=== PATIENT | female | born 1970 | race Caucasian/White ===

== ENCOUNTER 2021-05-01 16:24 | Inpatient (IN) | payer OTHER ==
[2021-05-01 18:07] VITALS: BMI 25.4
[2021-05-01] MEDS ORDERED: MAGNESIUM HYDROX 2400MG/30ML ORAL SUSPENSION 30 ML CUP PO PRN (18:30)
[2021-05-01] MEDS ORDERED: ONDANSETRON *ODT* 4 MG TABLET SL PRN (18:30)
[2021-05-01] MEDS ORDERED: MAG HYDROX/AL HYDROX/SIMETH 30 ML UNIT-DOSE CUP PO PRN (18:30)
[2021-05-01] MEDS ORDERED: BISMUTH SUBSALICYLATE 524 MG/30 ML PO PRN (18:30)
[2021-05-01] MEDS ORDERED: ACETAMINOPHEN 325 MG TABLET (FP) PO PRN ×2 (18:30)
[2021-05-01] MEDS ORDERED: IBUPROFEN 400 MG TABLET (FP) PO PRN (18:30)
[2021-05-01] MEDS ORDERED: MAGNESIUM CITRATE 300 ML BOTTLE PO PRN (18:30)
[2021-05-01] MEDS ORDERED: MENTHOL/PHENOL 1 EACH UD MM PRN (18:30)
[2021-05-01] MEDS ORDERED: chlordiazePOXIDE HCL 25 MG CAPSULE PO ONE ×2 (18:32)
[2021-05-01] MEDS ORDERED: chlordiazePOXIDE HCL 25 MG CAPSULE PO PRN (18:32)
[2021-05-01] MEDS ORDERED: chlordiazePOXIDE HCL 25 MG CAPSULE ONE (18:52)
[2021-05-01] MEDS ORDERED: traZODone HCL 50 MG TABLET (FP) PO ONE (22:00)
[2021-05-01] MEDS ORDERED: MELATONIN 5 MG TABLETS PO SCH (22:00)
[2021-05-01] MEDS: chlordiazePOXIDE HCL 25 MG CAPSULE PO SCH (22:32)
[2021-05-01] MEDS: THIAMINE HCL 100 MG TABLET (FP) PO SCH (22:51)
[2021-05-02] MEDS: chlordiazePOXIDE HCL 25 MG CAPSULE PO SCH ×2 (05:59→10:34)
[2021-05-02 10:06] LABS: CALCIUM 9.2 mg/dL (8.5-10.1)
[2021-05-02 10:07] LABS: ALBUMIN 3.8 g/dl (3.4-5.0); BLOOD UREA NITROGEN 19.6 mg/dL (7-18)
[2021-05-02 10:11] LABS: BILIRUBIN,TOTAL 0.6 mg/dL (0.2-1); TOT PROT 6.8 g/dl (6.4-8.2)
[2021-05-02 10:13] LABS: HEMATOCRIT 31.8 % (32.4-45.2); HEMOGLOBIN 10.1 GM/dL (10.7-15.3); MCH 29.2 pg (25.7-33.7); MCHC 31.7 g/dl (32.0-36.0); MEAN CELL VOLUME 92.1 fl (80-96); MEAN PLT VOLUME 8.6 fl (7.5-11.1); PLATELET COUNT 102 10^3/uL (134-434); RBC 3.45 M/mm3 (3.60-5.2); RDW 20.5 % (11.6-15.6); WHITE BLOOD COUNT 2.4 K/mm3 (4.0-10.0)
[2021-05-02] MEDS: METHOCARBAMOL 500 MG TABLET PO PRN (10:33)
[2021-05-02] MEDS: hydrOXYzine PAMOATE 25 MG CAPSULE (FP) PO PRN ×2 (10:33→17:45)
[2021-05-02] MEDS: PRENATAL VITAMINS W/ FOLIC ACID TABLET (FP) PO SCH (10:33)
[2021-05-02] MEDS ORDERED: POTASSIUM CHLORIDE ORAL LIQUID 20 MEQ/15 ML PO ONE (15:30)
[2021-05-02] MEDS ORDERED: LORazepam 1 MG TABLET PO PRN (16:24)
[2021-05-02] MEDS: LORazepam 0.5 MG TABLET PO SCH ×2 (17:45→22:24)
[2021-05-02] MEDS: THIAMINE HCL 100 MG TABLET (FP) PO SCH (22:23)
[2021-05-02] MEDS: traZODone HCL 50 MG TABLET (FP) PO SCH (22:23)
[2021-05-03] MEDS ORDERED: chlordiazePOXIDE HCL 25 MG CAPSULE PO SCH (05:00)
[2021-05-03] MEDS: LORazepam 0.5 MG TABLET PO SCH ×3 (05:39→18:12)
[2021-05-03] MEDS: hydrOXYzine PAMOATE 25 MG CAPSULE (FP) PO PRN ×4 (05:43→22:26)
[2021-05-03] MEDS: PRENATAL VITAMINS W/ FOLIC ACID TABLET (FP) PO SCH (10:16)
[2021-05-03] MEDS: METHOCARBAMOL 500 MG TABLET PO PRN (10:16)
[2021-05-03 10:26] LABS: BASO % 1.7 % (0-2.0); HEMATOCRIT 32.2 % (32.4-45.2); HEMOGLOBIN 10.7 GM/dL (10.7-15.3); LYMPH % 26.9 % (8-40); MCH 30.3 pg (25.7-33.7); MCHC 33.3 g/dl (32.0-36.0); MEAN PLT VOLUME 8.5 fl (7.5-11.1); MONO % 19.6 % (3.8-10.2); NEUT % 48.8 % (42.8-82.8); PLATELET COUNT 100 10^3/uL (134-434); RBC 3.54 M/mm3 (3.60-5.2); RDW 20.3 % (11.6-15.6); WHITE BLOOD COUNT 2.3 K/mm3 (4.0-10.0)
[2021-05-03] MEDS: SERTRALINE HCL 50 MG TABLET (FP) PO SCH (13:33)
[2021-05-03 17:31] LABS: EPI CELLS >36 /uL (0-25.1); HYALINE CASTS 7 /uL (0-3.1); PH,URINE 7.5 (5.0-8.0); URINE APPEARANCE CLOUDY; URINE BACTERIA 4257 /uL (0-1359); URINE BILIRUBIN NEGATIVE (NEGATIVE); URINE COLOR YELLOW; URINE GLUCOSE (UA) NEGATIVE (NEGATIVE); URINE KETONE NEGATIVE (NEGATIVE); URINE LEUK ESTERASE 3+ (NEGATIVE); URINE NITRITE NEGATIVE (NEGATIVE); URINE PROTEIN 1+ (NEGATIVE); URINE RBC 34 /uL (0-23.9); URINE WBC 711 /uL (0-25.8)
[2021-05-03] MEDS: traZODone HCL 50 MG TABLET (FP) PO SCH (22:21)
[2021-05-03] MEDS: THIAMINE HCL 100 MG TABLET (FP) PO SCH (22:26)
[2021-05-04] MEDS ORDERED: chlordiazePOXIDE HCL 10 MG CAPSULE PO PRN
[2021-05-04] MEDS: LORazepam 0.5 MG TABLET PO SCH ×4 (01:00→22:08)
[2021-05-04] MEDS ORDERED: chlordiazePOXIDE HCL 10 MG CAPSULE PO SCH (05:00)
[2021-05-04] MEDS: hydrOXYzine PAMOATE 25 MG CAPSULE (FP) PO PRN ×2 (10:27→17:47)
[2021-05-04] MEDS: SERTRALINE HCL 50 MG TABLET (FP) PO SCH (10:27)
[2021-05-04] MEDS: PRENATAL VITAMINS W/ FOLIC ACID TABLET (FP) PO SCH (10:27)
[2021-05-04] MEDS: METHOCARBAMOL 500 MG TABLET PO PRN (10:27)
[2021-05-04] MEDS: SULFAMETHOXAZOLE/TRIMETHOPRIM 800MG/160MG D.S. TABLET PO SCH ×2 (11:16→22:08)
[2021-05-04] MEDS ORDERED: COLLOIDAL OATMEAL 1 BAR EACH TP PRN (13:23)
[2021-05-04] MEDS: THIAMINE HCL 100 MG TABLET (FP) PO SCH (22:08)
[2021-05-04] MEDS: traZODone HCL 50 MG TABLET (FP) PO SCH (22:08)
[2021-05-05] MEDS ORDERED: chlordiazePOXIDE HCL 10 MG CAPSULE PO SCH (05:00)
[2021-05-05] MEDS: LORazepam 0.5 MG TABLET PO SCH ×2 (06:07→17:39)
[2021-05-05] MEDS: METHOCARBAMOL 500 MG TABLET PO PRN (10:30)
[2021-05-05] MEDS: PRENATAL VITAMINS W/ FOLIC ACID TABLET (FP) PO SCH (10:30)
[2021-05-05] MEDS: hydrOXYzine PAMOATE 25 MG CAPSULE (FP) PO PRN ×3 (10:30→22:21)
[2021-05-05] MEDS: SERTRALINE HCL 50 MG TABLET (FP) PO SCH (10:30)
[2021-05-05] MEDS: SULFAMETHOXAZOLE/TRIMETHOPRIM 800MG/160MG D.S. TABLET PO SCH ×2 (10:30→22:21)
[2021-05-05] MEDS: traZODone HCL 50 MG TABLET (FP) PO SCH (22:20)
[2021-05-05] MEDS: THIAMINE HCL 100 MG TABLET (FP) PO SCH (22:21)
[2021-05-06] MEDS ORDERED: chlordiazePOXIDE HCL 10 MG CAPSULE PO ONE (05:00)
[2021-05-06] MEDS ORDERED: LORazepam 0.5 MG TABLET PO ONE (05:00)
[2021-05-06 08:16] VITALS: TEMP 98
[2021-05-06 09:58] VITALS: BP 111/72; PULSE 81
[2021-05-06] MEDS: hydrOXYzine PAMOATE 25 MG CAPSULE (FP) PO PRN (10:02)
[2021-05-06] MEDS: METHOCARBAMOL 500 MG TABLET PO PRN (10:02)
[2021-05-06] MEDS: SULFAMETHOXAZOLE/TRIMETHOPRIM 800MG/160MG D.S. TABLET PO SCH (10:02)
[2021-05-06] MEDS: SERTRALINE HCL 50 MG TABLET (FP) PO SCH (10:02)
[2021-05-06] MEDS: PRENATAL VITAMINS W/ FOLIC ACID TABLET (FP) PO SCH (10:02)
== END 2021-05-06 10:10 | disposition home or self-care (01) | DRG 775 ==
LOC: YASAS 16:24 → Y6N 21:00
PROVIDERS: ADMIT Allergy & Immunology; ATTEND Allergy & Immunology
PROC: HZ2ZZZZ Detoxification Services for Substance Abuse Treatment (ICD-10-PCS; principal; 2021-05-01)
DX: F10.230 Alcohol dependence with withdrawal, uncomplicated (principal); F10.220 Alcohol dependence with intoxication, uncomplicated; F10.280 Alcohol dependence with alcohol-induced anxiety disorder; F10.282 Alcohol dependence with alcohol-induced sleep disorder; F10.24 Alcohol dependence with alcohol-induced mood disorder; F43.10 Post-traumatic stress disorder, unspecified; D70.9 Neutropenia, unspecified; N39.0 Urinary tract infection, site not specified; R74.01 Elevation of levels of liver transaminase levels; Z62.810 Personal history of physical and sexual abuse in childhood; Z91.410 Personal history of adult physical and sexual abuse; Z86.69 Personal history of other diseases of the nervous system and sense organs; Z56.0 Unemployment, unspecified
CPT/HCPCS: 36415; 80053; 81003; 81025; 82962; 85025; 85027; 86780; C9803-CS; U0003; U0005

== ENCOUNTER 2021-05-12 11:59 | Inpatient (IN) | payer OTHER ==
[2021-05-12] MEDS ORDERED: ACETAMINOPHEN 325 MG TABLET (FP) PO PRN (12:26)
[2021-05-12] MEDS ORDERED: P-EPHED 60MG/TRIPROLIDI 2.5MG TABLET PO PRN (12:26)
[2021-05-12] MEDS ORDERED: MAGNESIUM HYDROX 2400MG/30ML ORAL SUSPENSION 30 ML CUP PO PRN (12:26)
[2021-05-12] MEDS ORDERED: LOPERAMIDE HCL 2 MG CAPSULE PO PRN (12:26)
[2021-05-12] MEDS ORDERED: IBUPROFEN 400 MG TABLET (FP) PO PRN (12:26)
[2021-05-12] MEDS ORDERED: guaiFENesin 200 MG/10 ML 10 ML UNIT-DOSE CUPS PO PRN (12:26)
[2021-05-12] MEDS ORDERED: MAG HYDROX/AL HYDROX/SIMETH 30 ML UNIT-DOSE CUP PO PRN (12:26)
[2021-05-12] MEDS ORDERED: MAGNESIUM CITRATE 300 ML BOTTLE PO PRN (12:26)
[2021-05-12 13:01] VITALS: BMI 26.7
[2021-05-12] MEDS: PRENATAL VITAMINS W/ FOLIC ACID TABLET (FP) PO SCH (20:01)
[2021-05-12] MEDS: hydrOXYzine PAMOATE 25 MG CAPSULE (FP) PO SCH ×3 (20:02→21:12)
[2021-05-12] MEDS: NICOTINE 7 MG/24 HOURS TOPICAL PATCH TD SCH (20:02)
[2021-05-12] MEDS: THIAMINE HCL 100 MG TABLET (FP) PO SCH (21:11)
[2021-05-12] MEDS ORDERED: MELATONIN 5 MG TABLETS PO SCH (22:00)
[2021-05-13] MEDS: hydrOXYzine PAMOATE 25 MG CAPSULE (FP) PO SCH ×5 (06:14→21:16)
[2021-05-13] MEDS: PRENATAL VITAMINS W/ FOLIC ACID TABLET (FP) PO SCH (09:42)
[2021-05-13] MEDS: NICOTINE 7 MG/24 HOURS TOPICAL PATCH TD SCH (09:43)
[2021-05-13 10:35] LABS: EPI CELLS 28 /uL (0-25.1); HYALINE CASTS 0 /uL (0-3.1); PH,URINE 7.5 (5.0-8.0); URINE APPEARANCE CLEAR; URINE BACTERIA 406 /uL (0-1359); URINE BILIRUBIN NEGATIVE (NEGATIVE); URINE COLOR YELLOW; URINE GLUCOSE (UA) NEGATIVE (NEGATIVE); URINE KETONE NEGATIVE (NEGATIVE); URINE LEUK ESTERASE 1+ (NEGATIVE); URINE NITRITE NEGATIVE (NEGATIVE); URINE PROTEIN NEGATIVE (NEGATIVE); URINE RBC 4 /uL (0-23.9); URINE WBC 67 /uL (0-25.8)
[2021-05-13 10:37] LABS: CALCIUM 9.3 mg/dL (8.5-10.1)
[2021-05-13 10:38] LABS: ALBUMIN 3.8 g/dl (3.4-5.0); BLOOD UREA NITROGEN 9.6 mg/dL (7-18)
[2021-05-13 10:41] LABS: CREATININE 0.7 mg/dL (0.55-1.3)
[2021-05-13 10:44] LABS: BILIRUBIN,TOTAL 0.7 mg/dL (0.2-1); HEMATOCRIT 33.4 % (32.4-45.2); HEMOGLOBIN 10.9 GM/dL (10.7-15.3); MCH 29.6 pg (25.7-33.7); MCHC 32.5 g/dl (32.0-36.0); MEAN CELL VOLUME 91.1 fl (80-96); MEAN PLT VOLUME 8.2 fl (7.5-11.1); PLATELET COUNT 258 10^3/uL (134-434); RBC 3.67 M/mm3 (3.60-5.2); RDW 19.5 % (11.6-15.6); TOT PROT 6.8 g/dl (6.4-8.2); WHITE BLOOD COUNT 4.5 K/mm3 (4.0-10.0)
[2021-05-13 11:08] LABS: SYPHILIS W/ RPR CONF NON-REACTIVE (NONREACTIVE)
[2021-05-13] MEDS: SULFAMETHOXAZOLE/TRIMETHOPRIM 800MG/160MG D.S. TABLET PO SCH (12:55)
[2021-05-13] MEDS: SERTRALINE HCL 50 MG TABLET (FP) PO SCH (15:50)
[2021-05-13] MEDS: THIAMINE HCL 100 MG TABLET (FP) PO SCH (21:15)
[2021-05-13] MEDS: traZODone HCL 100 MG TABLET (FP) PO SCH (21:16)
[2021-05-14] MEDS: hydrOXYzine PAMOATE 25 MG CAPSULE (FP) PO SCH ×5 (05:48→21:22)
[2021-05-14] MEDS: PRENATAL VITAMINS W/ FOLIC ACID TABLET (FP) PO SCH (10:17)
[2021-05-14] MEDS: NICOTINE 7 MG/24 HOURS TOPICAL PATCH TD SCH (10:17)
[2021-05-14] MEDS: SERTRALINE HCL 50 MG TABLET (FP) PO SCH (10:17)
[2021-05-14] MEDS: SULFAMETHOXAZOLE/TRIMETHOPRIM 800MG/160MG D.S. TABLET PO SCH (10:17)
[2021-05-14] MEDS: THIAMINE HCL 100 MG TABLET (FP) PO SCH (21:22)
[2021-05-14] MEDS: traZODone HCL 100 MG TABLET (FP) PO SCH (21:22)
[2021-05-15] MEDS: hydrOXYzine PAMOATE 25 MG CAPSULE (FP) PO SCH ×5 (06:36→21:10)
[2021-05-15] MEDS: PRENATAL VITAMINS W/ FOLIC ACID TABLET (FP) PO SCH (10:17)
[2021-05-15] MEDS: NICOTINE 7 MG/24 HOURS TOPICAL PATCH TD SCH (10:17)
[2021-05-15] MEDS: SULFAMETHOXAZOLE/TRIMETHOPRIM 800MG/160MG D.S. TABLET PO SCH (10:17)
[2021-05-15] MEDS: SERTRALINE HCL 50 MG TABLET (FP) PO SCH (10:17)
[2021-05-15] MEDS: traZODone HCL 100 MG TABLET (FP) PO SCH (21:10)
[2021-05-15] MEDS: THIAMINE HCL 100 MG TABLET (FP) PO SCH (21:10)
[2021-05-16] MEDS: hydrOXYzine PAMOATE 25 MG CAPSULE (FP) PO SCH ×5 (06:17→21:05)
[2021-05-16] MEDS: PRENATAL VITAMINS W/ FOLIC ACID TABLET (FP) PO SCH (09:14)
[2021-05-16] MEDS: SERTRALINE HCL 50 MG TABLET (FP) PO SCH (09:14)
[2021-05-16] MEDS: NICOTINE 7 MG/24 HOURS TOPICAL PATCH TD SCH (09:14)
[2021-05-16] MEDS: SULFAMETHOXAZOLE/TRIMETHOPRIM 800MG/160MG D.S. TABLET PO SCH (09:14)
[2021-05-16] MEDS: traZODone HCL 100 MG TABLET (FP) PO SCH (21:05)
[2021-05-16] MEDS: THIAMINE HCL 100 MG TABLET (FP) PO SCH (21:05)
[2021-05-17] MEDS: hydrOXYzine PAMOATE 25 MG CAPSULE (FP) PO SCH ×5 (06:06→21:05)
[2021-05-17] MEDS: SULFAMETHOXAZOLE/TRIMETHOPRIM 800MG/160MG D.S. TABLET PO SCH (09:42)
[2021-05-17] MEDS: SERTRALINE HCL 50 MG TABLET (FP) PO SCH (09:42)
[2021-05-17] MEDS: PRENATAL VITAMINS W/ FOLIC ACID TABLET (FP) PO SCH (09:42)
[2021-05-17] MEDS: NICOTINE 7 MG/24 HOURS TOPICAL PATCH TD SCH (09:42)
[2021-05-17] MEDS: THIAMINE HCL 100 MG TABLET (FP) PO SCH (21:05)
[2021-05-17] MEDS: traZODone HCL 100 MG TABLET (FP) PO SCH (21:05)
[2021-05-18] MEDS: hydrOXYzine PAMOATE 25 MG CAPSULE (FP) PO SCH ×5 (05:53→21:14)
[2021-05-18] MEDS: NICOTINE 10 MG CARTRIDGE (INHALER) IH PRN (09:26)
[2021-05-18] MEDS: SERTRALINE HCL 50 MG TABLET (FP) PO SCH (09:26)
[2021-05-18] MEDS: NICOTINE 7 MG/24 HOURS TOPICAL PATCH TD SCH (09:26)
[2021-05-18] MEDS: PRENATAL VITAMINS W/ FOLIC ACID TABLET (FP) PO SCH (09:26)
[2021-05-18] MEDS: SULFAMETHOXAZOLE/TRIMETHOPRIM 800MG/160MG D.S. TABLET PO SCH (09:26)
[2021-05-18] MEDS: THIAMINE HCL 100 MG TABLET (FP) PO SCH (21:14)
[2021-05-18] MEDS: traZODone HCL 100 MG TABLET (FP) PO SCH (21:14)
[2021-05-19] MEDS: hydrOXYzine PAMOATE 25 MG CAPSULE (FP) PO SCH ×5 (06:14→21:11)
[2021-05-19] MEDS: NICOTINE 7 MG/24 HOURS TOPICAL PATCH TD SCH (09:07)
[2021-05-19] MEDS: SULFAMETHOXAZOLE/TRIMETHOPRIM 800MG/160MG D.S. TABLET PO SCH (09:07)
[2021-05-19] MEDS: PRENATAL VITAMINS W/ FOLIC ACID TABLET (FP) PO SCH (09:07)
[2021-05-19] MEDS: SERTRALINE HCL 50 MG TABLET (FP) PO SCH (09:07)
[2021-05-19] MEDS: THIAMINE HCL 100 MG TABLET (FP) PO SCH (21:11)
[2021-05-19] MEDS: traZODone HCL 100 MG TABLET (FP) PO SCH (21:11)
[2021-05-20] MEDS: hydrOXYzine PAMOATE 25 MG CAPSULE (FP) PO SCH ×5 (06:29→22:16)
[2021-05-20] MEDS: PRENATAL VITAMINS W/ FOLIC ACID TABLET (FP) PO SCH (11:02)
[2021-05-20] MEDS: SULFAMETHOXAZOLE/TRIMETHOPRIM 800MG/160MG D.S. TABLET PO SCH (11:03)
[2021-05-20] MEDS: NICOTINE 10 MG CARTRIDGE (INHALER) IH PRN (11:03)
[2021-05-20] MEDS: NICOTINE 7 MG/24 HOURS TOPICAL PATCH TD SCH (11:03)
[2021-05-20] MEDS: SERTRALINE HCL 50 MG TABLET (FP) PO SCH (11:03)
[2021-05-20] MEDS: THIAMINE HCL 100 MG TABLET (FP) PO SCH (22:16)
[2021-05-20] MEDS: traZODone HCL 100 MG TABLET (FP) PO SCH (22:16)
[2021-05-21] MEDS: hydrOXYzine PAMOATE 25 MG CAPSULE (FP) PO SCH ×3 (06:16→14:38)
[2021-05-21] MEDS: PRENATAL VITAMINS W/ FOLIC ACID TABLET (FP) PO SCH (10:56)
[2021-05-21] MEDS: SERTRALINE HCL 50 MG TABLET (FP) PO SCH (10:56)
[2021-05-21] MEDS: NICOTINE 10 MG CARTRIDGE (INHALER) IH PRN (10:56)
[2021-05-21] MEDS: NICOTINE 7 MG/24 HOURS TOPICAL PATCH TD SCH (10:56)
[2021-05-21] MEDS: SULFAMETHOXAZOLE/TRIMETHOPRIM 800MG/160MG D.S. TABLET PO SCH (10:56)
[2021-05-21] MEDS: hydrOXYzine PAMOATE 25 MG CAPSULE (FP) PO PRN ×2 (14:28→21:06)
[2021-05-21 20:27] LABS: EPI CELLS 18 /uL (0-25.1); HYALINE CASTS 0 /uL (0-3.1); URINE APPEARANCE CLEAR; URINE BACTERIA 218 /uL (0-1359); URINE BILIRUBIN NEGATIVE (NEGATIVE); URINE COLOR YELLOW; URINE GLUCOSE (UA) NEGATIVE (NEGATIVE); URINE KETONE NEGATIVE (NEGATIVE); URINE LEUK ESTERASE 1+ (NEGATIVE); URINE NITRITE NEGATIVE (NEGATIVE); URINE PROTEIN NEGATIVE (NEGATIVE); URINE RBC 0 /uL (0-23.9); URINE UROBILINOGEN 0.2 mg/dL (0.2-1.0); URINE WBC 17 /uL (0-25.8)
[2021-05-21] MEDS: traZODone HCL 100 MG TABLET (FP) PO SCH (21:05)
[2021-05-21] MEDS: THIAMINE HCL 100 MG TABLET (FP) PO SCH (21:06)
[2021-05-22] MEDS: hydrOXYzine PAMOATE 25 MG CAPSULE (FP) PO PRN ×4 (06:22→21:37)
[2021-05-22] MEDS: PRENATAL VITAMINS W/ FOLIC ACID TABLET (FP) PO SCH (11:17)
[2021-05-22] MEDS: SERTRALINE HCL 50 MG TABLET (FP) PO SCH (11:17)
[2021-05-22] MEDS: SULFAMETHOXAZOLE/TRIMETHOPRIM 800MG/160MG D.S. TABLET PO SCH (11:17)
[2021-05-22] MEDS: NICOTINE 10 MG CARTRIDGE (INHALER) IH PRN (11:18)
[2021-05-22] MEDS: NICOTINE 7 MG/24 HOURS TOPICAL PATCH TD SCH (11:18)
[2021-05-22] MEDS: THIAMINE HCL 100 MG TABLET (FP) PO SCH (21:36)
[2021-05-22] MEDS: traZODone HCL 100 MG TABLET (FP) PO SCH (21:36)
[2021-05-23] MEDS: hydrOXYzine PAMOATE 25 MG CAPSULE (FP) PO PRN ×4 (06:28→21:33)
[2021-05-23] MEDS: PRENATAL VITAMINS W/ FOLIC ACID TABLET (FP) PO SCH (10:31)
[2021-05-23] MEDS: SULFAMETHOXAZOLE/TRIMETHOPRIM 800MG/160MG D.S. TABLET PO SCH (10:31)
[2021-05-23] MEDS: NICOTINE 7 MG/24 HOURS TOPICAL PATCH TD SCH (10:31)
[2021-05-23] MEDS: SERTRALINE HCL 50 MG TABLET (FP) PO SCH (10:31)
[2021-05-23] MEDS: THIAMINE HCL 100 MG TABLET (FP) PO SCH (21:33)
[2021-05-23] MEDS: traZODone HCL 100 MG TABLET (FP) PO SCH (21:33)
[2021-05-24] MEDS: PRENATAL VITAMINS W/ FOLIC ACID TABLET (FP) PO SCH (10:45)
[2021-05-24] MEDS: SULFAMETHOXAZOLE/TRIMETHOPRIM 800MG/160MG D.S. TABLET PO SCH (10:45)
[2021-05-24] MEDS: SERTRALINE HCL 50 MG TABLET (FP) PO SCH (10:45)
[2021-05-24] MEDS: NICOTINE 7 MG/24 HOURS TOPICAL PATCH TD SCH (10:45)
[2021-05-24] MEDS: hydrOXYzine PAMOATE 25 MG CAPSULE (FP) PO PRN ×2 (18:08→21:13)
[2021-05-24] MEDS: THIAMINE HCL 100 MG TABLET (FP) PO SCH (21:13)
[2021-05-24] MEDS: traZODone HCL 100 MG TABLET (FP) PO SCH (21:13)
[2021-05-25] MEDS: hydrOXYzine PAMOATE 25 MG CAPSULE (FP) PO PRN ×2 (06:16→10:37)
[2021-05-25] MEDS: PRENATAL VITAMINS W/ FOLIC ACID TABLET (FP) PO SCH (10:36)
[2021-05-25] MEDS: NICOTINE 7 MG/24 HOURS TOPICAL PATCH TD SCH (10:36)
[2021-05-25] MEDS: SERTRALINE HCL 50 MG TABLET (FP) PO SCH (10:37)
[2021-05-25] MEDS: NICOTINE 10 MG CARTRIDGE (INHALER) IH PRN (10:37)
[2021-05-25] MEDS ORDERED: COLLOIDAL OATMEAL 1 BAR EACH TP PRN (15:55)
[2021-05-25] MEDS: hydrOXYzine PAMOATE 50 MG CAPSULE (FP) PO PRN ×2 (16:02→21:08)
[2021-05-25] MEDS: MINERAL OIL/PETROLAT/WATER TOPICAL CREAM 113 GM JAR TP SCH (16:03)
[2021-05-25] MEDS: traZODone HCL 100 MG TABLET (FP) PO SCH (21:08)
[2021-05-25] MEDS: THIAMINE HCL 100 MG TABLET (FP) PO SCH (21:08)
[2021-05-26] MEDS: SERTRALINE HCL 50 MG TABLET (FP) PO SCH (09:07)
[2021-05-26] MEDS: PRENATAL VITAMINS W/ FOLIC ACID TABLET (FP) PO SCH (09:07)
[2021-05-26] MEDS: hydrOXYzine PAMOATE 50 MG CAPSULE (FP) PO PRN ×3 (09:07→21:35)
[2021-05-26] MEDS: NICOTINE 7 MG/24 HOURS TOPICAL PATCH TD SCH (09:08)
[2021-05-26] MEDS: MINERAL OIL/PETROLAT/WATER TOPICAL CREAM 113 GM JAR TP SCH (09:09)
[2021-05-26] MEDS: THIAMINE HCL 100 MG TABLET (FP) PO SCH (21:35)
[2021-05-26] MEDS: traZODone HCL 100 MG TABLET (FP) PO SCH (21:35)
[2021-05-27] MEDS: PRENATAL VITAMINS W/ FOLIC ACID TABLET (FP) PO SCH (10:52)
[2021-05-27] MEDS: hydrOXYzine PAMOATE 50 MG CAPSULE (FP) PO PRN ×3 (10:53→21:58)
[2021-05-27] MEDS: NICOTINE 7 MG/24 HOURS TOPICAL PATCH TD SCH (10:53)
[2021-05-27] MEDS: SERTRALINE HCL 50 MG TABLET (FP) PO SCH (10:54)
[2021-05-27] MEDS: NICOTINE 10 MG CARTRIDGE (INHALER) IH PRN (10:54)
[2021-05-27] MEDS: MINERAL OIL/PETROLAT/WATER TOPICAL CREAM 113 GM JAR TP SCH (10:55)
[2021-05-27] MEDS: THIAMINE HCL 100 MG TABLET (FP) PO SCH (21:08)
[2021-05-27] MEDS: traZODone HCL 100 MG TABLET (FP) PO SCH (21:08)
[2021-05-28] MEDS: PRENATAL VITAMINS W/ FOLIC ACID TABLET (FP) PO SCH (10:46)
[2021-05-28] MEDS: NICOTINE 7 MG/24 HOURS TOPICAL PATCH TD SCH (10:46)
[2021-05-28] MEDS: SERTRALINE HCL 50 MG TABLET (FP) PO SCH (10:47)
[2021-05-28] MEDS: hydrOXYzine PAMOATE 50 MG CAPSULE (FP) PO PRN ×3 (10:47→21:08)
[2021-05-28] MEDS: MINERAL OIL/PETROLAT/WATER TOPICAL CREAM 113 GM JAR TP SCH (10:47)
[2021-05-28] MEDS: traZODone HCL 100 MG TABLET (FP) PO SCH (21:08)
[2021-05-28] MEDS: THIAMINE HCL 100 MG TABLET (FP) PO SCH (21:08)
[2021-05-29] MEDS: hydrOXYzine PAMOATE 50 MG CAPSULE (FP) PO PRN ×4 (06:13→22:53)
[2021-05-29] MEDS: NICOTINE 7 MG/24 HOURS TOPICAL PATCH TD SCH (10:25)
[2021-05-29] MEDS: MINERAL OIL/PETROLAT/WATER TOPICAL CREAM 113 GM JAR TP SCH (10:25)
[2021-05-29] MEDS: PRENATAL VITAMINS W/ FOLIC ACID TABLET (FP) PO SCH (10:25)
[2021-05-29] MEDS: SERTRALINE HCL 50 MG TABLET (FP) PO SCH (10:25)
[2021-05-29] MEDS: traZODone HCL 100 MG TABLET (FP) PO SCH (21:49)
[2021-05-29] MEDS: THIAMINE HCL 100 MG TABLET (FP) PO SCH (21:49)
[2021-05-30] MEDS: hydrOXYzine PAMOATE 50 MG CAPSULE (FP) PO PRN (06:29)
[2021-05-30] MEDS: SERTRALINE HCL 50 MG TABLET (FP) PO SCH (10:23)
[2021-05-30] MEDS: PRENATAL VITAMINS W/ FOLIC ACID TABLET (FP) PO SCH (10:23)
[2021-05-30] MEDS: MINERAL OIL/PETROLAT/WATER TOPICAL CREAM 113 GM JAR TP SCH (10:24)
[2021-05-30] MEDS: NICOTINE 7 MG/24 HOURS TOPICAL PATCH TD SCH (10:24)
[2021-05-30] MEDS: traZODone HCL 100 MG TABLET (FP) PO SCH (21:48)
[2021-05-30] MEDS: THIAMINE HCL 100 MG TABLET (FP) PO SCH (21:48)
[2021-05-31] MEDS: hydrOXYzine PAMOATE 50 MG CAPSULE (FP) PO PRN ×3 (06:03→21:41)
[2021-05-31] MEDS: NICOTINE 7 MG/24 HOURS TOPICAL PATCH TD SCH (10:20)
[2021-05-31] MEDS: SERTRALINE HCL 50 MG TABLET (FP) PO SCH (10:20)
[2021-05-31] MEDS: PRENATAL VITAMINS W/ FOLIC ACID TABLET (FP) PO SCH (10:20)
[2021-05-31] MEDS: MINERAL OIL/PETROLAT/WATER TOPICAL CREAM 113 GM JAR TP SCH (10:21)
[2021-05-31] MEDS: traZODone HCL 100 MG TABLET (FP) PO SCH (21:41)
[2021-05-31] MEDS: THIAMINE HCL 100 MG TABLET (FP) PO SCH (21:41)
[2021-06-01] MEDS: hydrOXYzine PAMOATE 50 MG CAPSULE (FP) PO PRN ×2 (06:01→11:05)
[2021-06-01] MEDS: PRENATAL VITAMINS W/ FOLIC ACID TABLET (FP) PO SCH (11:05)
[2021-06-01] MEDS: SERTRALINE HCL 50 MG TABLET (FP) PO SCH (11:05)
[2021-06-01] MEDS: NICOTINE 7 MG/24 HOURS TOPICAL PATCH TD SCH (11:05)
[2021-06-01] MEDS: MINERAL OIL/PETROLAT/WATER TOPICAL CREAM 113 GM JAR TP SCH (11:06)
[2021-06-01] MEDS: traZODone HCL 100 MG TABLET (FP) PO SCH (21:09)
[2021-06-01] MEDS: THIAMINE HCL 100 MG TABLET (FP) PO SCH (21:09)
[2021-06-02] MEDS: hydrOXYzine PAMOATE 50 MG CAPSULE (FP) PO PRN ×4 (06:04→21:04)
[2021-06-02] MEDS: SERTRALINE HCL 50 MG TABLET (FP) PO SCH (10:39)
[2021-06-02] MEDS: PRENATAL VITAMINS W/ FOLIC ACID TABLET (FP) PO SCH (10:39)
[2021-06-02] MEDS: NICOTINE 7 MG/24 HOURS TOPICAL PATCH TD SCH (10:39)
[2021-06-02] MEDS: NICOTINE 10 MG CARTRIDGE (INHALER) IH PRN (10:40)
[2021-06-02] MEDS: MINERAL OIL/PETROLAT/WATER TOPICAL CREAM 113 GM JAR TP SCH (10:40)
[2021-06-02] MEDS: THIAMINE HCL 100 MG TABLET (FP) PO SCH (21:04)
[2021-06-02] MEDS: traZODone HCL 100 MG TABLET (FP) PO SCH (21:04)
[2021-06-03 07:29] VITALS: TEMP 97.8
[2021-06-03] MEDS: hydrOXYzine PAMOATE 50 MG CAPSULE (FP) PO PRN ×3 (11:29→22:23)
[2021-06-03] MEDS: SERTRALINE HCL 50 MG TABLET (FP) PO SCH (11:29)
[2021-06-03] MEDS: PRENATAL VITAMINS W/ FOLIC ACID TABLET (FP) PO SCH (11:29)
[2021-06-03] MEDS: NICOTINE 7 MG/24 HOURS TOPICAL PATCH TD SCH (11:29)
[2021-06-03] MEDS: MINERAL OIL/PETROLAT/WATER TOPICAL CREAM 113 GM JAR TP SCH (13:33)
[2021-06-03] MEDS: traZODone HCL 100 MG TABLET (FP) PO SCH (22:23)
[2021-06-03] MEDS: THIAMINE HCL 100 MG TABLET (FP) PO SCH (22:23)
[2021-06-04] MEDS: hydrOXYzine PAMOATE 50 MG CAPSULE (FP) PO PRN ×2 (06:14→09:23)
[2021-06-04 07:53] VITALS: BP 107/74; PULSE 72
[2021-06-04] MEDS: PRENATAL VITAMINS W/ FOLIC ACID TABLET (FP) PO SCH (09:22)
[2021-06-04] MEDS: SERTRALINE HCL 50 MG TABLET (FP) PO SCH (09:22)
[2021-06-04] MEDS: MINERAL OIL/PETROLAT/WATER TOPICAL CREAM 113 GM JAR TP SCH (09:23)
[2021-06-04] MEDS: NICOTINE 7 MG/24 HOURS TOPICAL PATCH TD SCH (09:23)
== END 2021-06-04 09:35 | disposition home or self-care (01) | DRG 772 ==
LOC: YASAS 11:59 → Y3W 16:57 → Y5N 05-19 10:40
PROVIDERS: ADMIT Allergy & Immunology; ATTEND Allergy & Immunology
PROC: HZ42ZZZ Group Counseling for Substance Abuse Treatment, Cognitive-Behavioral (ICD-10-PCS; principal; 2021-05-12)
DX: F10.20 Alcohol dependence, uncomplicated (principal); F17.210 Nicotine dependence, cigarettes, uncomplicated; F10.280 Alcohol dependence with alcohol-induced anxiety disorder; F10.282 Alcohol dependence with alcohol-induced sleep disorder; F10.24 Alcohol dependence with alcohol-induced mood disorder; F41.9 Anxiety disorder, unspecified; F43.10 Post-traumatic stress disorder, unspecified; L29.8 Other pruritus; Z62.810 Personal history of physical and sexual abuse in childhood; Z91.410 Personal history of adult physical and sexual abuse; Z87.440 Personal history of urinary (tract) infections
CPT/HCPCS: 36415; 71046-TC-FY; 80053; 81003; 81025; 85027; 86780; 86803; 87086; 87491; 87591; 87661; C9803; U0003; U0005

== ENCOUNTER 2021-06-15 11:40 | Inpatient (IN) | payer OTHER ==
[2021-06-15 12:08] VITALS: BMI 24.2
[2021-06-15] MEDS ORDERED: MAGNESIUM CITRATE 300 ML BOTTLE PO PRN (12:19)
[2021-06-15] MEDS ORDERED: ACETAMINOPHEN 325 MG TABLET (FP) PO PRN (12:19)
[2021-06-15] MEDS ORDERED: MENTHOL/PHENOL 1 EACH UD MM PRN (12:19)
[2021-06-15] MEDS ORDERED: MAGNESIUM HYDROX 2400MG/30ML ORAL SUSPENSION 30 ML CUP PO PRN (12:19)
[2021-06-15] MEDS ORDERED: ONDANSETRON *ODT* 4 MG TABLET SL PRN (12:19)
[2021-06-15] MEDS ORDERED: LOPERAMIDE HCL 2 MG CAPSULE PO PRN (12:19)
[2021-06-15] MEDS ORDERED: IBUPROFEN 400 MG TABLET (FP) PO PRN (12:19)
[2021-06-15] MEDS ORDERED: NICOTINE 10 MG CARTRIDGE (INHALER) IH PRN (12:19)
[2021-06-15] MEDS ORDERED: BISMUTH SUBSALICYLATE 524 MG/30 ML PO PRN (12:19)
[2021-06-15] MEDS ORDERED: chlordiazePOXIDE HCL 25 MG CAPSULE PO PRN (12:19)
[2021-06-15] MEDS ORDERED: MAG HYDROX/AL HYDROX/SIMETH 30 ML UNIT-DOSE CUP PO PRN (12:19)
[2021-06-15] MEDS ORDERED: chlordiazePOXIDE HCL 25 MG CAPSULE ONE (13:37)
[2021-06-15] MEDS: chlordiazePOXIDE HCL 25 MG CAPSULE PO SCH ×3 (13:39→22:45)
[2021-06-15] MEDS: NICOTINE 7 MG/24 HOURS TOPICAL PATCH TD SCH (13:42)
[2021-06-15] MEDS ORDERED: hydrOXYzine PAMOATE 25 MG CAPSULE (FP) PO SCH ×2 (14:00)
[2021-06-15] MEDS ORDERED: cloNIDine HCL 0.1 MG TABLET PO ONE (14:00)
[2021-06-15 14:26] LABS: CALCIUM 10.5 mg/dL (8.5-10.1)
[2021-06-15 14:27] LABS: ALBUMIN 4.6 g/dl (3.4-5.0); BLOOD UREA NITROGEN 10.7 mg/dL (7-18); HEMATOCRIT 38.1 % (32.4-45.2); HEMOGLOBIN 12.3 GM/dL (10.7-15.3); MCH 29.4 pg (25.7-33.7); MCHC 32.2 g/dl (32.0-36.0); MEAN CELL VOLUME 91.3 fl (80-96); MEAN PLT VOLUME 8.9 fl (7.5-11.1); PLATELET COUNT 210 10^3/uL (134-434); RBC 4.17 M/mm3 (3.60-5.2); RDW 17.5 % (11.6-15.6); WHITE BLOOD COUNT 4.9 K/mm3 (4.0-10.0)
[2021-06-15 14:30] LABS: CREATININE 0.8 mg/dL (0.55-1.3)
[2021-06-15 14:31] LABS: BILIRUBIN,TOTAL 0.4 mg/dL (0.2-1); TOT PROT 8.3 g/dl (6.4-8.2)
[2021-06-15] MEDS: PRENATAL VITAMINS W/ FOLIC ACID TABLET (FP) PO SCH (15:03)
[2021-06-15] MEDS: METHOCARBAMOL 500 MG TABLET PO PRN (15:15)
[2021-06-15] MEDS: hydrOXYzine PAMOATE 25 MG CAPSULE (FP) PO PRN ×3 (15:15→23:13)
[2021-06-15] MEDS ORDERED: MELATONIN 5 MG TABLETS PO SCH (22:00)
[2021-06-15] MEDS: THIAMINE HCL 100 MG TABLET (FP) PO SCH (22:45)
[2021-06-16] MEDS: chlordiazePOXIDE HCL 25 MG CAPSULE PO SCH ×4 (05:37→22:25)
[2021-06-16] MEDS: hydrOXYzine PAMOATE 25 MG CAPSULE (FP) PO PRN ×3 (05:39→18:11)
[2021-06-16] MEDS ORDERED: cloNIDine HCL 0.1 MG TABLET PO PRN (10:16)
[2021-06-16] MEDS: NICOTINE 7 MG/24 HOURS TOPICAL PATCH TD SCH (10:26)
[2021-06-16] MEDS: PRENATAL VITAMINS W/ FOLIC ACID TABLET (FP) PO SCH (10:26)
[2021-06-16] MEDS: SERTRALINE HCL 50 MG TABLET (FP) PO SCH (15:56)
[2021-06-16] MEDS: traZODone HCL 50 MG TABLET (FP) PO SCH (22:24)
[2021-06-16] MEDS: THIAMINE HCL 100 MG TABLET (FP) PO SCH (22:24)
[2021-06-17] MEDS: hydrOXYzine PAMOATE 25 MG CAPSULE (FP) PO PRN ×4 (04:17→22:41)
[2021-06-17] MEDS: ACETAMINOPHEN 325 MG TABLET (FP) PO PRN ×2 (04:17→22:41)
[2021-06-17] MEDS: chlordiazePOXIDE HCL 25 MG CAPSULE PO SCH ×4 (04:19→22:40)
[2021-06-17 10:07] LABS: SARS-CoV-2 NAA Not Detected (Not Detected)
[2021-06-17] MEDS: PRENATAL VITAMINS W/ FOLIC ACID TABLET (FP) PO SCH (10:39)
[2021-06-17] MEDS: SERTRALINE HCL 50 MG TABLET (FP) PO SCH (10:39)
[2021-06-17] MEDS ORDERED: MINERAL OIL/PETROLAT/WATER TOPICAL CREAM 113 GM JAR TP PRN (11:43)
[2021-06-17] MEDS: NICOTINE 7 MG/24 HOURS TOPICAL PATCH TD SCH (12:33)
[2021-06-17] MEDS ORDERED: COLLOIDAL OATMEAL 1 BAR EACH TP PRN (16:19)
[2021-06-17] MEDS: traZODone HCL 50 MG TABLET (FP) PO SCH (22:40)
[2021-06-17] MEDS: THIAMINE HCL 100 MG TABLET (FP) PO SCH (22:40)
[2021-06-17] MEDS: METHOCARBAMOL 500 MG TABLET PO PRN (22:41)
[2021-06-18] MEDS ORDERED: chlordiazePOXIDE HCL 10 MG CAPSULE PO PRN
[2021-06-18] MEDS: chlordiazePOXIDE HCL 10 MG CAPSULE PO SCH ×4 (06:11→22:47)
[2021-06-18] MEDS: hydrOXYzine PAMOATE 25 MG CAPSULE (FP) PO PRN ×4 (06:14→22:47)
[2021-06-18] MEDS: SERTRALINE HCL 50 MG TABLET (FP) PO SCH (10:58)
[2021-06-18] MEDS: PRENATAL VITAMINS W/ FOLIC ACID TABLET (FP) PO SCH (10:58)
[2021-06-18] MEDS: NICOTINE 7 MG/24 HOURS TOPICAL PATCH TD SCH (11:51)
[2021-06-18] MEDS: traZODone HCL 50 MG TABLET (FP) PO SCH (22:47)
[2021-06-18] MEDS: THIAMINE HCL 100 MG TABLET (FP) PO SCH (22:47)
[2021-06-19] MEDS: chlordiazePOXIDE HCL 10 MG CAPSULE PO SCH ×2 (05:52→17:22)
[2021-06-19] MEDS: hydrOXYzine PAMOATE 25 MG CAPSULE (FP) PO PRN ×4 (05:54→22:24)
[2021-06-19] MEDS: SERTRALINE HCL 50 MG TABLET (FP) PO SCH (10:25)
[2021-06-19] MEDS: PRENATAL VITAMINS W/ FOLIC ACID TABLET (FP) PO SCH (10:25)
[2021-06-19] MEDS: NICOTINE 7 MG/24 HOURS TOPICAL PATCH TD SCH (10:26)
[2021-06-19] MEDS: ACETAMINOPHEN 325 MG TABLET (FP) PO PRN (17:24)
[2021-06-19] MEDS: THIAMINE HCL 100 MG TABLET (FP) PO SCH (22:24)
[2021-06-19] MEDS: METHOCARBAMOL 500 MG TABLET PO PRN (22:24)
[2021-06-19] MEDS: traZODone HCL 50 MG TABLET (FP) PO SCH (22:24)
[2021-06-20] MEDS ORDERED: chlordiazePOXIDE HCL 10 MG CAPSULE PO ONE (05:00)
[2021-06-20] MEDS: hydrOXYzine PAMOATE 25 MG CAPSULE (FP) PO PRN ×2 (06:31→10:25)
[2021-06-20 08:46] VITALS: BP 134/86; PULSE 83; TEMP 97.7
[2021-06-20] MEDS: SERTRALINE HCL 50 MG TABLET (FP) PO SCH (10:25)
[2021-06-20] MEDS: PRENATAL VITAMINS W/ FOLIC ACID TABLET (FP) PO SCH (10:25)
[2021-06-20] MEDS: NICOTINE 7 MG/24 HOURS TOPICAL PATCH TD SCH (10:26)
== END 2021-06-20 10:25 | disposition other institution (70) | DRG 775 ==
LOC: YASAS 11:40 → Y3N 13:10
PROVIDERS: ADMIT Allergy & Immunology; ATTEND Allergy & Immunology
PROC: HZ2ZZZZ Detoxification Services for Substance Abuse Treatment (ICD-10-PCS; principal; 2021-06-15)
DX: F10.230 Alcohol dependence with withdrawal, uncomplicated (principal); F17.210 Nicotine dependence, cigarettes, uncomplicated; F10.282 Alcohol dependence with alcohol-induced sleep disorder; F10.280 Alcohol dependence with alcohol-induced anxiety disorder; F10.24 Alcohol dependence with alcohol-induced mood disorder; F43.10 Post-traumatic stress disorder, unspecified; L85.3 Xerosis cutis; Z62.810 Personal history of physical and sexual abuse in childhood; Z91.410 Personal history of adult physical and sexual abuse
CPT/HCPCS: 36415; 70150-TC-FY; 70160-TC-FY; 80053; 81025; 85027; 86780; 87811; 93005; 93010; C9803; J0735; U0003; U0005

== ENCOUNTER 2021-07-27 14:17 | Inpatient (IN) | payer OTHER ==
[2021-07-27] MEDS ORDERED: ACETAMINOPHEN 325 MG TABLET (FP) PO PRN ×2 (15:01)
[2021-07-27] MEDS ORDERED: DICYCLOMINE HCL 10 MG CAPSULE PO PRN (15:01)
[2021-07-27] MEDS ORDERED: MAG HYDROX/AL HYDROX/SIMETH 30 ML UNIT-DOSE CUP PO PRN (15:01)
[2021-07-27] MEDS ORDERED: BISMUTH SUBSALICYLATE 262 MG/15 ML BTL PO PRN (15:01)
[2021-07-27] MEDS ORDERED: ONDANSETRON *ODT* 4 MG TABLET SL PRN (15:01)
[2021-07-27] MEDS ORDERED: MAGNESIUM CITRATE 300 ML BOTTLE PO PRN (15:01)
[2021-07-27] MEDS ORDERED: MAGNESIUM HYDROX 2400MG/30ML ORAL SUSPENSION 30 ML CUP PO PRN (15:01)
[2021-07-27] MEDS ORDERED: LOPERAMIDE HCL 2 MG CAPSULE PO PRN (15:01)
[2021-07-27] MEDS ORDERED: IBUPROFEN 400 MG TABLET (FP) PO PRN (15:01)
[2021-07-27] MEDS ORDERED: chlordiazePOXIDE HCL 25 MG CAPSULE PO PRN (15:01)
[2021-07-27] MEDS ORDERED: MENTHOL/PHENOL 1 EACH UD MM PRN (15:01)
[2021-07-27] MEDS ORDERED: chlordiazePOXIDE HCL 25 MG CAPSULE ONE (17:46)
[2021-07-27 17:54] VITALS: BMI 28.2
[2021-07-27] MEDS: THIAMINE HCL 100 MG TABLET (FP) PO SCH (22:49)
[2021-07-27] MEDS: MELATONIN 5 MG TABLETS PO SCH (22:49)
[2021-07-27] MEDS: hydrOXYzine PAMOATE 25 MG CAPSULE (FP) PO SCH ×2 (22:49→22:53)
[2021-07-27] MEDS: chlordiazePOXIDE HCL 25 MG CAPSULE PO SCH ×3 (22:50→22:53)
[2021-07-27] MEDS: NICOTINE 14 MG/24 HOURS TOPICAL PATCH TD SCH (22:52)
[2021-07-27] MEDS: PRENATAL VITAMINS W/ FOLIC ACID TABLET (FP) PO SCH (22:53)
[2021-07-28] MEDS: chlordiazePOXIDE HCL 25 MG CAPSULE PO SCH ×4 (05:28→22:48)
[2021-07-28] MEDS: hydrOXYzine PAMOATE 25 MG CAPSULE (FP) PO SCH ×5 (05:28→22:48)
[2021-07-28] MEDS ORDERED: cloNIDine HCL 0.1 MG TABLET PO SCH (10:00)
[2021-07-28 10:02] LABS: HEMATOCRIT 37.4 % (32.4-45.2); HEMOGLOBIN 12.6 GM/dL (10.7-15.3); MCH 29.7 pg (25.7-33.7); MCHC 33.6 g/dl (32.0-36.0); MEAN CELL VOLUME 88.3 fl (80-96); MEAN PLT VOLUME 8.3 fl (7.5-11.1); PLATELET COUNT 121 10^3/uL (134-434); RBC 4.24 M/mm3 (3.60-5.2); RDW 16.2 % (11.6-15.6); WHITE BLOOD COUNT 5.7 K/mm3 (4.0-10.0)
[2021-07-28 10:11] LABS: CALCIUM 9.1 mg/dL (8.5-10.1)
[2021-07-28 10:13] LABS: ALBUMIN 4.6 g/dl (3.4-5.0); CREATININE 0.8 mg/dL (0.55-1.3)
[2021-07-28 10:15] LABS: BILIRUBIN,TOTAL 0.9 mg/dL (0.2-1); TOT PROT 8.1 g/dl (6.4-8.2)
[2021-07-28] MEDS: PRENATAL VITAMINS W/ FOLIC ACID TABLET (FP) PO SCH (10:17)
[2021-07-28] MEDS: NICOTINE 14 MG/24 HOURS TOPICAL PATCH TD SCH (10:19)
[2021-07-28] MEDS: NICOTINE 10 MG CARTRIDGE (INHALER) IH PRN (10:21)
[2021-07-28] MEDS ORDERED: cloNIDine HCL 0.1 MG TABLET PO PRN (13:16)
[2021-07-28] MEDS ORDERED: cloNIDine HCL 0.1 MG TABLET PO ONE (13:45)
[2021-07-28 16:08] LABS: SARS-CoV-2 NAA Not Detected (Not Detected)
[2021-07-28] MEDS: THIAMINE HCL 100 MG TABLET (FP) PO SCH (22:47)
[2021-07-28] MEDS: MELATONIN 5 MG TABLETS PO SCH (22:47)
[2021-07-28] MEDS: traZODone HCL 100 MG TABLET (FP) PO SCH (22:48)
[2021-07-29] MEDS: METHOCARBAMOL 500 MG TABLET PO PRN (05:29)
[2021-07-29] MEDS: hydrOXYzine PAMOATE 25 MG CAPSULE (FP) PO SCH ×5 (05:29→22:38)
[2021-07-29] MEDS: chlordiazePOXIDE HCL 25 MG CAPSULE PO SCH ×4 (05:30→22:38)
[2021-07-29] MEDS: PRENATAL VITAMINS W/ FOLIC ACID TABLET (FP) PO SCH (10:32)
[2021-07-29] MEDS: NICOTINE 14 MG/24 HOURS TOPICAL PATCH TD SCH (10:35)
[2021-07-29] MEDS ORDERED: POTASSIUM CHLORIDE ORAL LIQUID 20 MEQ/15 ML PO ONE (14:01)
[2021-07-29] MEDS ORDERED: BACLOFEN 10 MG TABLET (FP) PO ONE (14:08)
[2021-07-29] MEDS ORDERED: chlordiazePOXIDE HCL 25 MG CAPSULE PO ONE (14:30)
[2021-07-29] MEDS: MELATONIN 5 MG TABLETS PO SCH (22:38)
[2021-07-29] MEDS: THIAMINE HCL 100 MG TABLET (FP) PO SCH (22:38)
[2021-07-29] MEDS: traZODone HCL 100 MG TABLET (FP) PO SCH (22:38)
[2021-07-30] MEDS ORDERED: chlordiazePOXIDE HCL 10 MG CAPSULE PO PRN
[2021-07-30] MEDS: hydrOXYzine PAMOATE 25 MG CAPSULE (FP) PO SCH (05:51)
[2021-07-30] MEDS: chlordiazePOXIDE HCL 10 MG CAPSULE PO SCH ×4 (05:51→22:09)
[2021-07-30] MEDS ORDERED: hydrOXYzine PAMOATE 25 MG CAPSULE (FP) PO PRN (08:31)
[2021-07-30] MEDS: NICOTINE 10 MG CARTRIDGE (INHALER) IH PRN (10:23)
[2021-07-30] MEDS: PRENATAL VITAMINS W/ FOLIC ACID TABLET (FP) PO SCH (10:24)
[2021-07-30] MEDS: METHOCARBAMOL 500 MG TABLET PO PRN ×2 (10:24→20:03)
[2021-07-30] MEDS: NICOTINE 14 MG/24 HOURS TOPICAL PATCH TD SCH (10:25)
[2021-07-30] MEDS ORDERED: hydrOXYzine PAMOATE 25 MG CAPSULE (FP) PO SCH (12:45)
[2021-07-30] MEDS: hydrOXYzine PAMOATE 50 MG CAPSULE (FP) PO PRN ×3 (14:46→22:09)
[2021-07-30] MEDS: traZODone HCL 100 MG TABLET (FP) PO SCH (22:09)
[2021-07-30] MEDS: THIAMINE HCL 100 MG TABLET (FP) PO SCH (22:09)
[2021-07-30] MEDS: MELATONIN 5 MG TABLETS PO SCH (22:09)
[2021-07-31 00:07] LABS: SARS-CoV-2 NAA Not Detected (Not Detected)
[2021-07-31] MEDS ORDERED: chlordiazePOXIDE HCL 10 MG CAPSULE PO SCH (05:00)
[2021-07-31] MEDS: METHOCARBAMOL 500 MG TABLET PO PRN ×2 (06:38→13:39)
[2021-07-31] MEDS: NICOTINE 14 MG/24 HOURS TOPICAL PATCH TD SCH (10:46)
[2021-07-31] MEDS: PRENATAL VITAMINS W/ FOLIC ACID TABLET (FP) PO SCH (10:49)
[2021-07-31] MEDS: hydrOXYzine PAMOATE 50 MG CAPSULE (FP) PO PRN (10:49)
[2021-07-31] MEDS: NICOTINE 10 MG CARTRIDGE (INHALER) IH PRN (10:51)
[2021-07-31 14:19] VITALS: BP 132/92; PULSE 73; TEMP 98.1
[2021-08-01] MEDS ORDERED: chlordiazePOXIDE HCL 10 MG CAPSULE PO ONE (05:00)
== END 2021-07-31 14:24 | disposition home or self-care (01) | DRG 775 ==
LOC: YASAS 14:17 → UNDOADMIN 17:10 → Y6N 17:10
PROVIDERS: ADMIT Allergy & Immunology; ATTEND Allergy & Immunology
PROC: HZ2ZZZZ Detoxification Services for Substance Abuse Treatment (ICD-10-PCS; principal; 2021-07-27)
DX: F10.230 Alcohol dependence with withdrawal, uncomplicated (principal); F17.210 Nicotine dependence, cigarettes, uncomplicated; F10.280 Alcohol dependence with alcohol-induced anxiety disorder; F10.282 Alcohol dependence with alcohol-induced sleep disorder; F43.10 Post-traumatic stress disorder, unspecified; D70.9 Neutropenia, unspecified; Z62.810 Personal history of physical and sexual abuse in childhood; Z91.410 Personal history of adult physical and sexual abuse; Z86.69 Personal history of other diseases of the nervous system and sense organs; Z87.19 Personal history of other diseases of the digestive system
CPT/HCPCS: 36415; 80053; 81025; 84132; 85027; 86780; 87811; C9803-CS; J0475; J0735; U0003; U0005

== ENCOUNTER 2021-07-27 18:39 | Emergency (ER) | payer OTHER ==
[2021-07-27 18:54] VITALS: BP 140/91; PULSE 91; TEMP 97.9; BMI 26.5
[2021-07-27] MEDS ORDERED: ACETAMINOPHEN 325 MG TABLET (FP) PO ONE (20:17)
[2021-07-27] MEDS ORDERED: ACETAMINOPHEN 325 MG TABLET (FP) ONE ×2 (20:28→20:46)
== END 2021-07-27 21:19 | disposition short-term general hospital (02) ==
LOC: JER 18:39
DX: S09.90XA Unspecified injury of head, initial encounter (principal); S00.93XA Contusion of unspecified part of head, initial encounter; W01.0XXA Fall on same level from slipping, tripping and stumbling without subsequent striking against object, initial encounter
CPT/HCPCS: 70450-TC; 72125-TC; 99284-25

== ENCOUNTER 2024-03-06 12:58 | Inpatient (IN) | payer OTHER ==
[2024-03-06 14:00] VITALS: BMI 24.8
[2024-03-06] MEDS ORDERED: guaiFENesin 600 MG TABLET.ER (FP) PO PRN (14:44)
[2024-03-06] MEDS ORDERED: DICYCLOMINE HCL 10 MG CAPSULE PO PRN (14:44)
[2024-03-06] MEDS ORDERED: POLYETHYLENE GLYCOL (HEALTHYLAX) 3350 17 GM PACKET PO PRN (14:44)
[2024-03-06] MEDS ORDERED: IBUPROFEN 400 MG TABLET (FP) PO PRN (14:44)
[2024-03-06] MEDS ORDERED: ONDANSETRON *ODT* 4 MG TABLET SL PRN (14:44)
[2024-03-06] MEDS ORDERED: BISMUTH SUBSALICYLATE 262 MG/15 ML BTL PO PRN (14:44)
[2024-03-06] MEDS ORDERED: MAGNESIUM HYDROX 2400MG/30ML ORAL SUSPENSION 30 ML CUP PO PRN (14:44)
[2024-03-06] MEDS ORDERED: LOPERAMIDE HCL 2 MG CAPSULE PO PRN (14:44)
[2024-03-06] MEDS ORDERED: BENZOCAINE/MENTHOL (CHLORASEPTIC ) LOZENGE MM PRN (14:44)
[2024-03-06] MEDS ORDERED: MAG HYDROX/AL HYDROX/SIMETH 30 ML UNIT-DOSE CUP PO PRN (14:44)
[2024-03-06] MEDS ORDERED: ACETAMINOPHEN 325 MG TABLET (FP) PO PRN (14:44)
[2024-03-06] MEDS ORDERED: BENZONATATE 200 MG CAPSULE PO PRN (14:44)
[2024-03-06] MEDS ORDERED: chlordiazePOXIDE HCL 25 MG CAPSULE ONE ×2 (15:39→17:40)
[2024-03-06] MEDS ORDERED: hydrOXYzine PAMOATE 25 MG CAPSULE (FP) PO ONE (15:39)
[2024-03-06] MEDS: hydrOXYzine PAMOATE 25 MG CAPSULE (FP) PO PRN (15:44)
[2024-03-06] MEDS: chlordiazePOXIDE HCL 25 MG CAPSULE PO PRN (15:44)
[2024-03-06] MEDS: chlordiazePOXIDE HCL 25 MG CAPSULE PO SCH (17:51)
[2024-03-06] MEDS: THIAMINE 100 MG TABLET PO SCH (22:53)
[2024-03-06] MEDS: MELATONIN 5 MG TABLETS PO SCH (22:53)
[2024-03-06] MEDS: METHOCARBAMOL 500 MG TABLET PO PRN (22:54)
[2024-03-07] MEDS: PRENATAL VITAMINS W/ FOLIC ACID TABLET (FP) PO SCH (10:35)
[2024-03-07 12:58] LABS: HEMATOCRIT 34.1 % (32.4-45.2); HEMOGLOBIN 11.6 GM/dL (10.7-15.3); MCH 33.7 pg (25.7-33.7); MCHC 34.2 g/dl (32.0-36.0); MEAN CELL VOLUME 98.7 fl (80-96); MEAN PLT VOLUME 8.9 fl (7.5-11.1); PLATELET COUNT 250 10^3/uL (134-434); RBC 3.45 M/mm3 (3.60-5.2); RDW 18.9 % (11.6-15.6)
[2024-03-07 13:04] LABS: POTASSIUM 4.7 mmol/L (3.5-5.1)
[2024-03-07 13:17] LABS: ALBUMIN 2.5 g/dl (3.4-5.0); BLOOD UREA NITROGEN 11.4 mg/dL (7-18)
[2024-03-07 13:21] LABS: CREATININE 0.8 mg/dL (0.55-1.3)
[2024-03-07 13:23] LABS: BILIRUBIN,TOTAL 5.1 mg/dL (0.2-1); TOT PROT 5.7 g/dl (6.4-8.2)
[2024-03-07] MEDS: IBUPROFEN 600 MG TABLET (FP) PO PRN (20:46)
[2024-03-07] MEDS: traZODone HCL 100 MG TABLET (FP) PO SCH (22:25)
[2024-03-08] MEDS: chlordiazePOXIDE HCL 25 MG CAPSULE PO SCH (05:52)
[2024-03-09] MEDS ORDERED: chlordiazePOXIDE HCL 10 MG CAPSULE PO PRN
[2024-03-09] MEDS: chlordiazePOXIDE HCL 10 MG CAPSULE PO SCH (05:45)
[2024-03-09 09:36] VITALS: BP 112/86; PULSE 85; RESP 18; TEMP 97.7
[2024-03-09] MEDS: HYDROCHLOROTHIAZIDE 25 MG TABLET (FP) PO SCH (10:32)
[2024-03-10] MEDS ORDERED: chlordiazePOXIDE HCL 10 MG CAPSULE PO SCH (05:00)
[2024-03-11] MEDS ORDERED: chlordiazePOXIDE HCL 10 MG CAPSULE PO ONE (05:00)
== END 2024-03-10 | disposition short-term general hospital (02) | DRG 775 ==
LOC: YASAS 12:58 → Y6N 16:25
PROVIDERS: ADMIT Allergy & Immunology; ATTEND Surgery
PROC: HZ2ZZZZ Detoxification Services for Substance Abuse Treatment (ICD-10-PCS; principal; 2024-03-06)
DX: F10.230 Alcohol dependence with withdrawal, uncomplicated (principal); F17.210 Nicotine dependence, cigarettes, uncomplicated; F41.9 Anxiety disorder, unspecified; F32.A Depression, unspecified; F43.10 Post-traumatic stress disorder, unspecified; G47.00 Insomnia, unspecified; I10 Essential (primary) hypertension; R74.8 Abnormal levels of other serum enzymes; Z62.810 Personal history of physical and sexual abuse in childhood; Z56.0 Unemployment, unspecified; Z59.00 Homelessness unspecified
CPT/HCPCS: 36415; 80053; 80305; 80307; 81025; 82977; 84075; 85027; 86780

== ENCOUNTER 2024-03-09 11:49 | Inpatient (IN) | payer OTHER ==
[2024-03-09 13:52] LABS: INR 0.87 (0.83-1.09); PROTHROMBIN TIME (PATIENT) 10.1 SEC (9.7-13.0)
[2024-03-09 13:54] LABS: BASO % 1.9 % (0-2.0); EOS % 1.5 % (0-4.5); HEMATOCRIT 31.6 % (32.4-45.2); HEMOGLOBIN 10.6 GM/dL (10.7-15.3); LYMPH % 32.7 % (8-40); MCH 33.3 pg (25.7-33.7); MCHC 33.4 g/dl (32.0-36.0); MEAN CELL VOLUME 99.7 fl (80-96); MEAN PLT VOLUME 9.3 fl (7.5-11.1); NEUT % 59.9 % (42.8-82.8); PLATELET COUNT 206 10^3/uL (134-434); RBC 3.17 M/mm3 (3.60-5.2); RDW 19.8 % (11.6-15.6); WHITE BLOOD COUNT 3.2 K/mm3 (4.0-10.0)
[2024-03-09 13:55] LABS: ACTIVATED PTT 35.5 SECONDS (25.2-36.5)
[2024-03-09 14:06] LABS: POTASSIUM 3.9 mmol/L (3.5-5.1)
[2024-03-09 14:08] LABS: CALCIUM 9.5 mg/dL (8.5-10.1)
[2024-03-09 14:09] LABS: ALBUMIN 2.4 g/dl (3.4-5.0); BLOOD UREA NITROGEN 9.5 mg/dL (7-18); MAGNESIUM 1.7 mg/dL (1.8-2.4)
[2024-03-09 14:11] LABS: BILIRUBIN,DIRECT 3.9 mg/dL (0.0-0.2)
[2024-03-09 14:12] LABS: CREATININE 0.8 mg/dL (0.55-1.3); PHOSPHOROUS 3.1 mg/dL (2.5-4.9)
[2024-03-09 14:13] LABS: BILIRUBIN,TOTAL 4.8 mg/dL (0.2-1); TOT PROT 5.8 g/dl (6.4-8.2)
[2024-03-09] MEDS ORDERED: KCL 10 MEQ IVPB 10 MEQ/100 ML INFUS.BAG IVPB SCH (14:15)
[2024-03-09 14:34] LABS: HEPATITIS B SURFACE AG MATERN NON-REACTIVE (NONREACTIVE)
[2024-03-09] MEDS ORDERED: MAGNESIUM 1GM/D5W - 1 GM/100 ML IVPB IVPB ONE (14:35)
[2024-03-09] MEDS ORDERED: THIAMINE HCL 200 MG/2 ML VIAL ONE (14:45)
[2024-03-09] MEDS: MAGNESIUM 1GM/D5W - 1 GM/100 ML IVPB IVPB ONE (14:54)
[2024-03-09 15:03] LABS: HIV INTERPRETATION NEGATIVE (NEGATIVE)
[2024-03-09] MEDS: THIAMINE HCL 200 MG/2 ML VIAL IVPB ONE (15:53)
[2024-03-09 16:16] VITALS: RESP 18
[2024-03-09 17:25] VITALS: BMI 21.2
[2024-03-09] MEDS: LORazepam 1 MG TABLET PO PRN (17:38)
[2024-03-09] MEDS: LORazepam 1 MG TABLET PO ONE (17:39)
[2024-03-09] MEDS: traZODone HCL 100 MG TABLET (FP) PO SCH (22:00)
[2024-03-09] MEDS: THIAMINE 100 MG TABLET PO SCH (22:02)
[2024-03-09] MEDS: ATORVASTATIN CA 10 MG TABLET (FP) PO SCH (22:02)
[2024-03-09] MEDS: HEPARIN NA (PORCINE) 5,000 UNITS/ML 1ML VIAL SQ SCH (22:03)
[2024-03-09] MEDS: LORazepam 1 MG TABLET PO SCH (22:07)
[2024-03-09] MEDS: VARENICLINE TARTRATE 1 MG TAB PO SCH (22:21)
[2024-03-10] MEDS: valACYclovir HCL 500 MG TABLET (FP) PO SCH (09:14)
[2024-03-10 09:23] LABS: BASO % 1.4 % (0-2.0); EOS % 1.5 % (0-4.5); HEMATOCRIT 29.4 % (32.4-45.2); HEMOGLOBIN 9.9 GM/dL (10.7-15.3); LYMPH % 34.3 % (8-40); MCH 33.9 pg (25.7-33.7); MCHC 33.8 g/dl (32.0-36.0); MEAN CELL VOLUME 100.4 fl (80-96); MEAN PLT VOLUME 8.5 fl (7.5-11.1); MONO % 6.7 % (3.8-10.2); NEUT % 56.1 % (42.8-82.8); PLATELET COUNT 189 10^3/uL (134-434); RBC 2.92 M/mm3 (3.60-5.2); RDW 19.2 % (11.6-15.6); WHITE BLOOD COUNT 3.5 K/mm3 (4.0-10.0)
[2024-03-10 10:09] LABS: ALBUMIN 2.3 g/dl (3.4-5.0)
[2024-03-10 10:11] LABS: BILIRUBIN,DIRECT 2.7 mg/dL (0.0-0.2)
[2024-03-10 10:13] LABS: BILIRUBIN,TOTAL 3.3 mg/dL (0.2-1); TOT PROT 5.4 g/dl (6.4-8.2)
[2024-03-10] MEDS: PATIENT'S OWN MEDICATION (NON-FORMULARY) (Dextroamphetamine/Amphetamine [Adderall 10 Mg Ta PO SCH (17:26)
[2024-03-10 18:56] LABS: POTASSIUM 3.9 mmol/L (3.5-5.1)
[2024-03-10 18:57] LABS: ALBUMIN 2.5 g/dl (3.4-5.0); BLOOD UREA NITROGEN 13.4 mg/dL (7-18); CALCIUM 9.5 mg/dL (8.5-10.1); MAGNESIUM 1.9 mg/dL (1.8-2.4)
[2024-03-10 19:00] LABS: CREATININE 0.9 mg/dL (0.55-1.3)
[2024-03-10 19:02] LABS: BILIRUBIN,TOTAL 3.3 mg/dL (0.2-1); TOT PROT 6.1 g/dl (6.4-8.2)
[2024-03-11] MEDS: FOLIC ACID 1 MG TABLET (FP) PO SCH (10:44)
[2024-03-11] MEDS: THIAMINE HCL 200 MG/2 ML VIAL IVPB SCH (11:36)
[2024-03-11 12:16] LABS: POTASSIUM 3.5 mmol/L (3.5-5.1)
[2024-03-11 12:24] LABS: BLOOD UREA NITROGEN 13.5 mg/dL (7-18)
[2024-03-11 12:26] LABS: ALBUMIN 2.3 g/dl (3.4-5.0)
[2024-03-11 12:27] LABS: CREATININE 0.7 mg/dL (0.55-1.3)
[2024-03-11 12:30] LABS: BILIRUBIN,TOTAL 2.6 mg/dL (0.2-1); TOT PROT 5.6 g/dl (6.4-8.2)
[2024-03-12 10:29] LABS: HEMATOCRIT 34.2 % (32.4-45.2); HEMOGLOBIN 11.6 GM/dL (10.7-15.3); MCH 34.3 pg (25.7-33.7); MCHC 33.9 g/dl (32.0-36.0); MEAN CELL VOLUME 101.2 fl (80-96); MEAN PLT VOLUME 8.9 fl (7.5-11.1); PLATELET COUNT 204 10^3/uL (134-434); RBC 3.38 M/mm3 (3.60-5.2); WHITE BLOOD COUNT 4.4 K/mm3 (4.0-10.0)
[2024-03-12 10:45] LABS: POTASSIUM 3.5 mmol/L (3.5-5.1)
[2024-03-12 10:52] LABS: BLOOD UREA NITROGEN 10.6 mg/dL (7-18); CALCIUM 9.3 mg/dL (8.5-10.1); MAGNESIUM 2.1 mg/dL (1.8-2.4)
[2024-03-12 10:55] LABS: CREATININE 0.8 mg/dL (0.55-1.3)
[2024-03-12 10:56] LABS: PHOSPHOROUS 2.9 mg/dL (2.5-4.9)
[2024-03-12 10:57] LABS: BILIRUBIN,TOTAL 2.6 mg/dL (0.2-1); TOT PROT 6.9 g/dl (6.4-8.2)
[2024-03-12 11:07] LABS: ALBUMIN 2.9 g/dl (3.4-5.0)
[2024-03-12 22:09] LABS: FIBROSIS SCORE. 0.94 (0.00-0.21); HCV ALPHA 2 MACRO CHART 196 mg/dL (110-276); NECRO.INFLAM ACT.SCORE 0.68 (0.00-0.17); NECROINFLAM. ACTIVITY GRADE A3-Severe activity (.)
[2024-03-13 07:11] LABS: ALPHA-1-ANTITRYPSIN SERUM 247 mg/dL (101-187)
[2024-03-13 10:07] LABS: INR 0.86 (0.83-1.09); PROTHROMBIN TIME (PATIENT) 9.9 SEC (9.7-13.0)
[2024-03-13 10:11] LABS: BASO % 1.7 % (0-2.0); EOS % 1.5 % (0-4.5); HEMATOCRIT 30.3 % (32.4-45.2); LYMPH % 27.4 % (8-40); MCH 33.7 pg (25.7-33.7); MCHC 33.1 g/dl (32.0-36.0); MEAN CELL VOLUME 101.9 fl (80-96); MEAN PLT VOLUME 8.7 fl (7.5-11.1); MONO % 8.4 % (3.8-10.2); PLATELET COUNT 196 10^3/uL (134-434); RBC 2.97 M/mm3 (3.60-5.2); RDW 19.4 % (11.6-15.6); WHITE BLOOD COUNT 4.2 K/mm3 (4.0-10.0)
[2024-03-13 10:45] LABS: POTASSIUM 4.4 mmol/L (3.5-5.1)
[2024-03-13 10:48] LABS: ALBUMIN 2.5 g/dl (3.4-5.0); BLOOD UREA NITROGEN 10.7 mg/dL (7-18); CALCIUM 9.5 mg/dL (8.5-10.1)
[2024-03-13 10:52] LABS: CREATININE 0.8 mg/dL (0.55-1.3)
[2024-03-13 10:53] LABS: TOT PROT 5.8 g/dl (6.4-8.2)
[2024-03-13 16:09] LABS: GLIADIN ANTIBODY IGA 8 units (0-19); GLIADIN ANTIBODY IGG 2 units (0-19); TRANSGLUTAMINASE IGG < 2 U/mL (0-5)
[2024-03-14 09:43] LABS: HEMATOCRIT 32.7 % (32.4-45.2); HEMOGLOBIN 10.9 GM/dL (10.7-15.3); MCHC 33.3 g/dl (32.0-36.0); MEAN CELL VOLUME 102.2 fl (80-96); MEAN PLT VOLUME 8.6 fl (7.5-11.1); PLATELET COUNT 210 10^3/uL (134-434); RDW 19.8 % (11.6-15.6); WHITE BLOOD COUNT 4.5 K/mm3 (4.0-10.0)
[2024-03-14 10:13] LABS: POTASSIUM 3.6 mmol/L (3.5-5.1)
[2024-03-14 10:15] LABS: ALBUMIN 2.9 g/dl (3.4-5.0); BLOOD UREA NITROGEN 9.9 mg/dL (7-18); CALCIUM 9.5 mg/dL (8.5-10.1)
[2024-03-14 10:18] LABS: CREATININE 0.7 mg/dL (0.55-1.3)
[2024-03-14 10:20] LABS: TOT PROT 6.5 g/dl (6.4-8.2)
[2024-03-14 22:12] VITALS: TEMP 97.9
[2024-03-15] MEDS: THIAMINE 100 MG TABLET PO ONE (10:35)
[2024-03-15 11:17] VITALS: BP 124/95; PULSE 97
== END 2024-03-15 12:42 | disposition home or self-care (01) | DRG 280 ==
LOC: JER 11:49 → JERBED 14:14 → OBSVTOIN 15:25 → J6S 17:05
PROVIDERS: ADMIT Internal Medicine; ATTEND Internal Medicine
DX: K70.10 Alcoholic hepatitis without ascites (principal); K70.9 Alcoholic liver disease, unspecified; E87.3 Alkalosis; E83.42 Hypomagnesemia; E80.6 Other disorders of bilirubin metabolism; F10.20 Alcohol dependence, uncomplicated; R26.9 Unspecified abnormalities of gait and mobility; R29.818 Other symptoms and signs involving the nervous system; I10 Essential (primary) hypertension; E78.5 Hyperlipidemia, unspecified; F32.A Depression, unspecified
CPT/HCPCS: 36415; 74181-TC; 76705-TC; 80053; 80076; 80307; 82103; 82172; 82248; 82550; 82607; 82728; 82746; 82784; 82977; 83010; 83516; 83540; 83550; 83735; 83883; 84080; 84100; 84443; 84460; 84702; 85025; 85027; 85045; 85610; 85730; 86705; 86707; 86708; 87340; 87350; 87389; 87517; 87522; 87902; 93005; 93010; 97116-GP; 97161-GP; 99285-25; G0378

== ENCOUNTER 2024-03-21 17:29 | Inpatient (IN) | payer OTHER ==
[2024-03-21 18:06] VITALS: BMI 27.4
[2024-03-21] MEDS ORDERED: DICYCLOMINE HCL 10 MG CAPSULE PO PRN (18:14)
[2024-03-21] MEDS ORDERED: LOPERAMIDE HCL 2 MG CAPSULE PO PRN (18:14)
[2024-03-21] MEDS ORDERED: ONDANSETRON *ODT* 4 MG TABLET SL PRN (18:14)
[2024-03-21] MEDS ORDERED: MAG HYDROX/AL HYDROX/SIMETH 30 ML UNIT-DOSE CUP PO PRN (18:14)
[2024-03-21] MEDS ORDERED: BISMUTH SUBSALICYLATE 524 MG/30 ML PO PRN (18:14)
[2024-03-21] MEDS ORDERED: MAGNESIUM HYDROX 2400MG/30ML ORAL SUSPENSION 30 ML CUP PO PRN (18:14)
[2024-03-21] MEDS ORDERED: BENZONATATE 200 MG CAPSULE PO PRN (18:14)
[2024-03-21] MEDS ORDERED: IBUPROFEN 400 MG TABLET (FP) PO PRN (18:14)
[2024-03-21] MEDS ORDERED: POLYETHYLENE GLYCOL (HEALTHYLAX) 3350 17 GM PACKET PO PRN (18:14)
[2024-03-21] MEDS ORDERED: IBUPROFEN 600 MG TABLET (FP) PO PRN (18:14)
[2024-03-21] MEDS ORDERED: guaiFENesin 600 MG TABLET.ER (FP) PO PRN (18:14)
[2024-03-21] MEDS ORDERED: BENZOCAINE/MENTHOL (CHLORASEPTIC ) LOZENGE MM PRN (18:14)
[2024-03-21] MEDS: METOPROLOL TARTRATE 25 MG TABLET (FP) PO ONE (18:29)
[2024-03-21] MEDS: hydrOXYzine PAMOATE 25 MG CAPSULE (FP) PO PRN (18:40)
[2024-03-21] MEDS ORDERED: LORazepam 2 MG TABLET ONE (18:58)
[2024-03-21] MEDS: LORazepam 2 MG TABLET PO ONE (19:00)
[2024-03-21] MEDS: MELATONIN 5 MG TABLETS PO SCH (23:29)
[2024-03-21] MEDS: THIAMINE 100 MG TABLET PO SCH (23:30)
[2024-03-21] MEDS: LORazepam 2 MG TABLET PO SCH (23:30)
[2024-03-22 09:36] LABS: POTASSIUM 3.8 mmol/L (3.5-5.1)
[2024-03-22 09:41] LABS: ALBUMIN 2.7 g/dl (3.4-5.0); BLOOD UREA NITROGEN 19.5 mg/dL (7-18); CALCIUM 8.6 mg/dL (8.5-10.1)
[2024-03-22 09:43] LABS: CREATININE 0.9 mg/dL (0.55-1.3)
[2024-03-22 09:44] LABS: BILIRUBIN,TOTAL 1.4 mg/dL (0.2-1); TOT PROT 5.6 g/dl (6.4-8.2)
[2024-03-22] MEDS: PRENATAL VITAMINS W/ FOLIC ACID TABLET (FP) PO SCH (10:24)
[2024-03-22] MEDS: ATORVASTATIN CA 10 MG TABLET (FP) PO SCH (22:53)
[2024-03-22] MEDS: traZODone HCL 100 MG TABLET (FP) PO SCH (22:53)
[2024-03-22] MEDS: METHOCARBAMOL 500 MG TABLET PO PRN (22:53)
[2024-03-23] MEDS: LORazepam 1 MG TABLET PO SCH (05:56)
[2024-03-23] MEDS: LORazepam 1 MG TABLET PO PRN (08:34)
[2024-03-24] MEDS ORDERED: LORazepam 0.5 MG TABLET PO PRN
[2024-03-24] MEDS: LORazepam 0.5 MG TABLET PO SCH (05:55)
[2024-03-24] MEDS: NALOXONE (NYS OPIOID OVERDOSE PROGRAM) 4 MG/0.1 ML SPRAY NS SCH (10:50)
[2024-03-24] MEDS: amLODIPine BESYLATE 5 MG TABLET (FP) PO SCH (11:09)
[2024-03-24] MEDS: LACTULOSE 20 GM/30 ML UDC (FOR ORAL USE ONLY) PO SCH (13:48)
[2024-03-24] MEDS: cloNIDine HCL 0.1 MG TABLET PO PRN (14:47)
[2024-03-25] MEDS: LORazepam 0.5 MG TABLET PO ONE (05:47)
[2024-03-25 06:38] VITALS: RESP 16
[2024-03-25 09:58] VITALS: BP 133/71; PULSE 66; TEMP 97.7
== END 2024-03-25 10:18 | disposition home or self-care (01) | DRG 775 ==
LOC: YASAS 17:29 → Y6N 18:53
PROVIDERS: ADMIT Allergy & Immunology; ATTEND Allergy & Immunology
PROC: HZ2ZZZZ Detoxification Services for Substance Abuse Treatment (ICD-10-PCS; principal; 2024-03-21)
DX: F10.230 Alcohol dependence with withdrawal, uncomplicated (principal); F10.280 Alcohol dependence with alcohol-induced anxiety disorder; F10.282 Alcohol dependence with alcohol-induced sleep disorder; F10.24 Alcohol dependence with alcohol-induced mood disorder; F32.A Depression, unspecified; I10 Essential (primary) hypertension; E80.6 Other disorders of bilirubin metabolism; E78.2 Mixed hyperlipidemia; K70.10 Alcoholic hepatitis without ascites; R74.01 Elevation of levels of liver transaminase levels
CPT/HCPCS: 36415; 80053; 82140

== ENCOUNTER 2024-03-26 02:47 | Inpatient (IN) | payer OTHER ==
[2024-03-26 06:30] VITALS: BMI 25.9
[2024-03-26] MEDS ORDERED: guaiFENesin 600 MG TABLET.ER (FP) PO PRN (08:47)
[2024-03-26] MEDS ORDERED: MAG HYDROX/AL HYDROX/SIMETH 30 ML UNIT-DOSE CUP PO PRN (08:47)
[2024-03-26] MEDS ORDERED: LOPERAMIDE HCL 2 MG CAPSULE PO PRN (08:47)
[2024-03-26] MEDS ORDERED: BENZONATATE 200 MG CAPSULE PO PRN (08:47)
[2024-03-26] MEDS ORDERED: BENZOCAINE/MENTHOL (CHLORASEPTIC ) LOZENGE MM PRN (08:47)
[2024-03-26] MEDS ORDERED: PRENATAL VITAMINS W/ FOLIC ACID TABLET (FP) PO ONE (09:52)
[2024-03-26] MEDS: PRENATAL VITAMINS W/ FOLIC ACID TABLET (FP) PO SCH (09:56)
[2024-03-26] MEDS: NALOXONE (NYS OPIOID OVERDOSE PROGRAM) 4 MG/0.1 ML SPRAY NS SCH (13:23)
[2024-03-26] MEDS: hydrOXYzine PAMOATE 25 MG CAPSULE (FP) PO PRN (18:25)
[2024-03-26] MEDS: MELATONIN 5 MG TABLETS PO SCH (22:21)
[2024-03-26] MEDS: THIAMINE 100 MG TABLET PO SCH (22:21)
[2024-03-26] MEDS: traZODone HCL 100 MG TABLET (FP) PO SCH (22:21)
[2024-03-26] MEDS: METHOCARBAMOL 500 MG TABLET PO PRN (22:21)
[2024-03-26] MEDS: ATORVASTATIN CA 10 MG TABLET (FP) PO SCH (22:21)
[2024-03-27] MEDS ORDERED: amLODIPine BESYLATE 5 MG TABLET (FP) PO SCH (10:00)
[2024-03-28] MEDS: MAGNESIUM HYDROX 2400MG/30ML ORAL SUSPENSION 30 ML CUP PO PRN (21:21)
[2024-03-29] MEDS: hydrOXYzine PAMOATE 50 MG CAPSULE (FP) PO PRN (19:01)
[2024-03-29] MEDS: traZODone HCL 50 MG TABLET (FP) PO SCH (21:48)
[2024-03-30] MEDS: ATOMOXETINE HCL 25 MG CAPSULE PO SCH (10:14)
[2024-03-31] MEDS: POLYETHYLENE GLYCOL (HEALTHYLAX) 3350 17 GM PACKET PO PRN (06:17)
[2024-04-01] MEDS: LACTULOSE 20 GM/30 ML UDC (FOR ORAL USE ONLY) PO SCH (21:06)
[2024-04-02] MEDS: NALTREXONE HCL 50 MG TABLET PO SCH (10:00)
[2024-04-02 15:38] LABS: BASO % 0.4 % (0-2.0); EOS % 1.7 % (0-4.5); HEMATOCRIT 34.9 % (32.4-45.2); HEMOGLOBIN 11.3 GM/dL (10.7-15.3); LYMPH % 35.4 % (8-40); MCH 34.1 pg (25.7-33.7); MCHC 32.4 g/dl (32.0-36.0); MEAN PLT VOLUME 8.7 fl (7.5-11.1); MONO % 10.1 % (3.8-10.2); NEUT % 52.4 % (42.8-82.8); PLATELET COUNT 313 10^3/uL (134-434); POTASSIUM 4.2 mmol/L (3.5-5.1); RBC 3.32 M/mm3 (3.60-5.2); RDW 16.3 % (11.6-15.6); WHITE BLOOD COUNT 3.3 K/mm3 (4.0-10.0)
[2024-04-02 15:41] LABS: INR 0.96 (0.83-1.09)
[2024-04-02 15:48] LABS: BLOOD UREA NITROGEN 11.3 mg/dL (7-18); MAGNESIUM 2.3 mg/dL (1.8-2.4)
[2024-04-02 15:52] LABS: CREATININE 0.7 mg/dL (0.55-1.3)
[2024-04-02 15:54] LABS: TOT PROT 7.5 g/dl (6.4-8.2)
[2024-04-02 16:32] LABS: CALCIUM 10.1 mg/dL (8.5-10.1)
[2024-04-02 18:21] LABS: ANISOCYTOSIS 2+; MACROCYTOSIS 1+
[2024-04-03] MEDS: DOCUSATE SODIUM 100 MG CAPSULE (FP) PO PRN (10:17)
[2024-04-04] MEDS: METHOCARBAMOL 500 MG TABLET PO PRN (22:16)
[2024-04-05] MEDS: BISACODYL 5 MG TABLET.DR (FP) PO PRN (19:09)
[2024-04-06] MEDS: SODIUM PHOSPHATE/NA BIPHOS 133 ML ENEMA RC ONE (16:49)
[2024-04-11 21:57] VITALS: RESP 18
[2024-04-12 07:37] VITALS: BP 139/85; PULSE 70; TEMP 96.8
[2024-04-12] MEDS: NALOXONE (NYS OPIOID OVERDOSE PROGRAM) 4 MG/0.1 ML SPRAY NS SCH (10:18)
== END 2024-04-12 10:25 | disposition home or self-care (01) | DRG 772 ==
LOC: YASAS 02:47 → Y3NR 11:57 → Y5N 03-27 10:35
PROVIDERS: ADMIT Psychiatry & Neurology Pain Medicine; ATTEND Psychiatry & Neurology Pain Medicine
PROC: HZ42ZZZ Group Counseling for Substance Abuse Treatment, Cognitive-Behavioral (ICD-10-PCS; principal; 2024-03-26)
DX: F10.20 Alcohol dependence, uncomplicated (principal); F10.24 Alcohol dependence with alcohol-induced mood disorder; F10.280 Alcohol dependence with alcohol-induced anxiety disorder; F10.282 Alcohol dependence with alcohol-induced sleep disorder; F43.10 Post-traumatic stress disorder, unspecified; F32.A Depression, unspecified; E72.20 Disorder of urea cycle metabolism, unspecified; E78.2 Mixed hyperlipidemia; I10 Essential (primary) hypertension; K59.00 Constipation, unspecified; R74.01 Elevation of levels of liver transaminase levels; Z87.19 Personal history of other diseases of the digestive system; Z87.891 Personal history of nicotine dependence
CPT/HCPCS: 36415; 80053; 80305; 81025; 82140; 82607; 82652; 82746; 83735; 85025; 85610; 87811

== ENCOUNTER 2024-05-04 15:57 | Inpatient (IN) | payer OTHER ==
[2024-05-04] MEDS ORDERED: THIAMINE HCL 200 MG/2 ML VIAL ONE (17:03)
[2024-05-04 17:09] LABS: BASO % 0.7 % (0-2.0); EOS % 0.1 % (0-4.5); HEMATOCRIT 39.5 % (32.4-45.2); HEMOGLOBIN 13.1 GM/dL (10.7-15.3); LYMPH % 26.8 % (8-40); MCH 31.9 pg (25.7-33.7); MCHC 33.1 g/dl (32.0-36.0); MEAN CELL VOLUME 96.6 fl (80-96); MEAN PLT VOLUME 8.1 fl (7.5-11.1); MONO % 3.9 % (3.8-10.2); NEUT % 68.5 % (42.8-82.8); PLATELET COUNT 272 10^3/uL (134-434); RBC 4.09 M/mm3 (3.60-5.2); RDW 15.4 % (11.6-15.6)
[2024-05-04] MEDS: THIAMINE HCL 200 MG/2 ML VIAL IVPB ONE (17:13)
[2024-05-04] MEDS: SODIUM CHLORIDE 0.9% 500 ML INFUS.BAG IV ONE (17:25)
[2024-05-04 17:43] LABS: POTASSIUM 3.4 mmol/L (3.5-5.1)
[2024-05-04 17:45] LABS: ALBUMIN 4.3 g/dl (3.4-5.0); BLOOD UREA NITROGEN 7.8 mg/dL (7-18); CALCIUM 9.6 mg/dL (8.5-10.1); MAGNESIUM 2.2 mg/dL (1.8-2.4)
[2024-05-04 17:49] LABS: CREATININE 2.7 mg/dL (0.55-1.3); PHOSPHOROUS 3.9 mg/dL (2.5-4.9)
[2024-05-04 17:50] LABS: BILIRUBIN,TOTAL 0.3 mg/dL (0.2-1); TOT PROT 7.4 g/dl (6.4-8.2)
[2024-05-04 19:09] LABS: VENOUS BASE EXCESS -2.5 mmol/L (-2-2); VENOUS O2 SATURATION 62.3 % (70-80); VENOUS PCO2 33.9 mmHg (38-52); VENOUS PH 7.417 (7.310-7.410)
[2024-05-04 20:10] LABS: URINE APPEARANCE CLEAR; URINE BILIRUBIN NEGATIVE (NEGATIVE); URINE COLOR YELLOW; URINE GLUCOSE (UA) NEGATIVE (NEGATIVE); URINE KETONE 1+ (NEGATIVE); URINE LEUK ESTERASE NEGATIVE (NEGATIVE); URINE NITRITE NEGATIVE (NEGATIVE); URINE PROTEIN NEGATIVE (NEGATIVE); URINE UROBILINOGEN 0.2 mg/dL (0.2-1.0)
[2024-05-04] MEDS ORDERED: FOLIC ACID 1 MG TABLET (FP) ONE (20:25)
[2024-05-04 20:30] LABS: URINE AMPHETAMINES NEGATIVE (NEGATIVE); URINE BARBITURATES NEGATIVE (NEGATIVE); URINE BENZODIAZEPINES NEGATIVE (NEGATIVE)
[2024-05-04 20:31] LABS: METHADONE, UR NEGATIVE (NEGATIVE); OPIATES, URI NEGATIVE (NEGATIVE); PHENCYCLIDINE,URINE NEGATIVE (NEGATIVE)
[2024-05-04 20:32] LABS: COCAINE, UR NEGATIVE (NEGATIVE)
[2024-05-04] MEDS: DEXTROSE 5%-0.45% SALINE 1,000 ML IV SCH (20:46)
[2024-05-04] MEDS: FOLIC ACID 1 MG TABLET (FP) PO ONE (20:46)
[2024-05-04] MEDS ORDERED: chlordiazePOXIDE HCL 25 MG CAPSULE ONE (21:24)
[2024-05-04] MEDS: chlordiazePOXIDE HCL 25 MG CAPSULE PO ONE (21:28)
[2024-05-04 22:12] LABS: MAGNESIUM 2.2 mg/dL (1.8-2.4)
[2024-05-04] MEDS ORDERED: DOCUSATE SODIUM 100 MG CAPSULE (FP) PO PRN (22:13)
[2024-05-04] MEDS ORDERED: DEXTROSE 50%-WATER 25 GM/50 ML DISP.SYRIN IVPUSH PRN (22:44)
[2024-05-04] MEDS: HEPARIN NA (PORCINE) 5,000 UNITS/ML 1ML VIAL SQ SCH (23:13)
[2024-05-04] MEDS ORDERED: HEPARIN NA (PORCINE) 5,000 UNITS/ML 1ML VIAL ONE (23:14)
[2024-05-04 23:17] LABS: POTASSIUM 3.6 mmol/L (3.5-5.1)
[2024-05-04 23:19] LABS: CALCIUM 9.1 mg/dL (8.5-10.1)
[2024-05-04 23:20] LABS: ALBUMIN 4.2 g/dl (3.4-5.0); BLOOD UREA NITROGEN 5.6 mg/dL (7-18)
[2024-05-04 23:23] LABS: CREATININE 2.5 mg/dL (0.55-1.3)
[2024-05-04 23:24] LABS: BILIRUBIN,TOTAL 0.3 mg/dL (0.2-1); TOT PROT 7.2 g/dl (6.4-8.2)
[2024-05-04] MEDS ORDERED: FOLIC ACID INJECTION - 1 MG, THIAMINE HCL 100 MG, MULTIVIT INJECTION ADULT 10 ML in SOD... IVPB ONE (23:45)
[2024-05-05] MEDS ORDERED: LORazepam 2 MG/ML SDV VIAL ONE (00:23)
[2024-05-05] MEDS ORDERED: POTASSIUM CHLORIDE ORAL LIQUID 20 MEQ/15 ML ONE (00:23)
[2024-05-05] MEDS: SODIUM CHLORIDE 1,000 ML IV SCH (00:30)
[2024-05-05] MEDS: POTASSIUM CHLORIDE ORAL LIQUID 20 MEQ/15 ML PO ONE (00:30)
[2024-05-05] MEDS: LORazepam 2 MG/ML SDV VIAL IVPUSH PRN (00:31)
[2024-05-05] MEDS: chlordiazePOXIDE HCL 25 MG CAPSULE PO PRN (02:05)
[2024-05-05] MEDS: SODIUM CHLORIDE 0.45% 1,000 ML IV SCH (02:44)
[2024-05-05 03:05] VITALS: BMI 23.5
[2024-05-05] MEDS: chlordiazePOXIDE HCL 25 MG CAPSULE PO SCH (05:12)
[2024-05-05] MEDS: amLODIPine BESYLATE 5 MG TABLET (FP) PO SCH (09:33)
[2024-05-05] MEDS: THIAMINE HCL 200 MG/2 ML VIAL IVPB SCH (09:33)
[2024-05-05] MEDS: FOLIC ACID 1 MG TABLET (FP) PO SCH (09:33)
[2024-05-05 14:59] LABS: POTASSIUM 3.9 mmol/L (3.5-5.1)
[2024-05-05 15:01] LABS: BLOOD UREA NITROGEN 4.2 mg/dL (7-18); CALCIUM 9.4 mg/dL (8.5-10.1)
[2024-05-05 15:05] LABS: CREATININE 1.9 mg/dL (0.55-1.3)
[2024-05-05] MEDS: SODIUM CHLORIDE 0.45% 500 ML IV SCH (19:14)
[2024-05-05] MEDS: ATORVASTATIN CA 10 MG TABLET (FP) PO SCH (23:00)
[2024-05-06] MEDS ORDERED: chlordiazePOXIDE HCL 10 MG CAPSULE PO PRN
[2024-05-06 03:36] VITALS: RESP 18
[2024-05-06] MEDS: chlordiazePOXIDE HCL 25 MG CAPSULE PO SCH (05:28)
[2024-05-06 10:04] LABS: POTASSIUM 3.6 mmol/L (3.5-5.1)
[2024-05-06 10:11] LABS: BLOOD UREA NITROGEN 3.4 mg/dL (7-18)
[2024-05-06 10:13] LABS: CALCIUM 9.7 mg/dL (8.5-10.1); CREATININE 1.6 mg/dL (0.55-1.3)
[2024-05-06 13:28] LABS: ALBUMIN 3.9 g/dl (3.4-5.0)
[2024-05-06 13:32] LABS: BILIRUBIN,DIRECT 0.2 mg/dL (0.0-0.2)
[2024-05-06 13:33] LABS: BILIRUBIN,TOTAL 0.3 mg/dL (0.2-1); TOT PROT 6.9 g/dl (6.4-8.2)
[2024-05-06] MEDS: traZODone HCL 100 MG, traZODone HCL 50 MG PO SCH (22:07)
[2024-05-07] MEDS: chlordiazePOXIDE HCL 10 MG CAPSULE PO SCH (06:06)
[2024-05-07 10:28] VITALS: BP 125/89; PULSE 72; TEMP 98
[2024-05-07 10:28] LABS: POTASSIUM 3.2 mmol/L (3.5-5.1)
[2024-05-07 10:30] LABS: ALBUMIN 3.7 g/dl (3.4-5.0); BLOOD UREA NITROGEN 8.9 mg/dL (7-18); CALCIUM 9.7 mg/dL (8.5-10.1)
[2024-05-07 10:34] LABS: CREATININE 1.4 mg/dL (0.55-1.3)
[2024-05-07 10:35] LABS: BILIRUBIN,TOTAL 0.3 mg/dL (0.2-1); TOT PROT 6.7 g/dl (6.4-8.2)
[2024-05-07] MEDS: POTASSIUM CHLORIDE ORAL LIQUID 20 MEQ/15 ML PO ONE (12:11)
[2024-05-07] MEDS ORDERED: POTASSIUM CHLORIDE 10 MEQ in SODIUM CHLORIDE 0.45% 1,000 ML IVPB SCH (13:00)
[2024-05-08] MEDS ORDERED: chlordiazePOXIDE HCL 10 MG CAPSULE PO SCH (05:00)
[2024-05-09] MEDS ORDERED: chlordiazePOXIDE HCL 10 MG CAPSULE PO ONE (05:00)
== END 2024-05-07 13:49 | disposition other institution (70) | DRG 816 ==
LOC: JER 15:57 → JERBED 20:15 → J8W 05-05 01:50 → OBSVTOIN 05-05 12:24
PROVIDERS: ADMIT Internal Medicine
DX: T51.2X1A Toxic effect of 2-Propanol, accidental (unintentional), initial encounter (principal); N17.9 Acute kidney failure, unspecified; I10 Essential (primary) hypertension; E78.5 Hyperlipidemia, unspecified; Y92.89 Other specified places as the place of occurrence of the external cause; F43.10 Post-traumatic stress disorder, unspecified
CPT/HCPCS: 36415; 70450-TC; 76775-TC; 80048; 80053; 80076; 80307; 81003; 82550; 82553; 82803; 82962; 83605; 83735; 83930; 84100; 84443; 85025; 87086; 93005; 93010; 99285-25; G0378; J1644

== ENCOUNTER 2024-05-08 01:33 | Inpatient (IN) | payer OTHER ==
[2024-05-08 02:23] VITALS: BMI 24.3
[2024-05-08] MEDS ORDERED: ONDANSETRON *ODT* 4 MG TABLET SL PRN (06:20)
[2024-05-08] MEDS ORDERED: NALOXONE (NARCAN) HCL 4 MG/0.1 ML SPRAY NS PRN (06:20)
[2024-05-08] MEDS ORDERED: BENZOCAINE/MENTHOL (CHLORASEPTIC ) LOZENGE MM PRN (06:20)
[2024-05-08] MEDS ORDERED: guaiFENesin 600 MG TABLET.ER (FP) PO PRN (06:20)
[2024-05-08] MEDS ORDERED: IBUPROFEN 400 MG TABLET (FP) PO PRN (06:20)
[2024-05-08] MEDS ORDERED: MAGNESIUM HYDROX 2400MG/30ML ORAL SUSPENSION 30 ML CUP PO PRN (06:20)
[2024-05-08] MEDS ORDERED: MAG HYDROX/AL HYDROX/SIMETH 30 ML UNIT-DOSE CUP PO PRN (06:20)
[2024-05-08] MEDS ORDERED: BISMUTH SUBSALICYLATE 524 MG/30 ML PO PRN (06:20)
[2024-05-08] MEDS ORDERED: LOPERAMIDE HCL 2 MG CAPSULE PO PRN (06:20)
[2024-05-08] MEDS ORDERED: BENZONATATE 200 MG CAPSULE PO PRN (06:20)
[2024-05-08] MEDS ORDERED: IBUPROFEN 600 MG TABLET (FP) PO PRN (06:20)
[2024-05-08] MEDS ORDERED: DICYCLOMINE HCL 10 MG CAPSULE PO PRN (06:20)
[2024-05-08] MEDS ORDERED: ACETAMINOPHEN 325 MG TABLET (FP) ONE (06:59)
[2024-05-08] MEDS: ACETAMINOPHEN 325 MG TABLET (FP) PO PRN (07:08)
[2024-05-08] MEDS ORDERED: chlordiazePOXIDE HCL 25 MG CAPSULE ONE ×2 (07:33→10:37)
[2024-05-08] MEDS: chlordiazePOXIDE HCL 25 MG CAPSULE PO PRN (07:36)
[2024-05-08] MEDS ORDERED: PRENATAL VITAMINS W/ FOLIC ACID TABLET (FP) PO ONE (10:38)
[2024-05-08] MEDS ORDERED: amLODIPine BESYLATE 5 MG TABLET (FP) ONE (10:38)
[2024-05-08] MEDS: PRENATAL VITAMINS W/ FOLIC ACID TABLET (FP) PO SCH (10:39)
[2024-05-08] MEDS: amLODIPine BESYLATE 5 MG TABLET (FP) PO SCH (10:39)
[2024-05-08] MEDS: chlordiazePOXIDE HCL 25 MG CAPSULE PO SCH (10:40)
[2024-05-08] MEDS: POLYETHYLENE GLYCOL (HEALTHYLAX) 3350 17 GM PACKET PO PRN (22:49)
[2024-05-08] MEDS: MELATONIN 5 MG TABLETS PO SCH (22:49)
[2024-05-08] MEDS: ATORVASTATIN CA 10 MG TABLET (FP) PO SCH (22:49)
[2024-05-08] MEDS: THIAMINE 100 MG TABLET PO SCH (22:49)
[2024-05-09] MEDS ORDERED: NALTREXONE HCL 50 MG TABLET PO PRN (08:55)
[2024-05-09] MEDS: hydrOXYzine PAMOATE 25 MG CAPSULE (FP) PO PRN (09:59)
[2024-05-09] MEDS: NALTREXONE HCL 50 MG TABLET PO SCH (09:59)
[2024-05-09] MEDS: chlordiazePOXIDE HCL 10 MG CAPSULE PO SCH (10:01)
[2024-05-09 11:31] LABS: POTASSIUM 3.9 mmol/L (3.5-5.1)
[2024-05-09 11:33] LABS: CALCIUM 9.6 mg/dL (8.5-10.1)
[2024-05-09 11:34] LABS: ALBUMIN 3.8 g/dl (3.4-5.0); BLOOD UREA NITROGEN 7.6 mg/dL (7-18)
[2024-05-09 11:37] LABS: CREATININE 0.8 mg/dL (0.55-1.3)
[2024-05-09 11:38] LABS: BILIRUBIN,TOTAL 0.2 mg/dL (0.2-1)
[2024-05-09 11:39] LABS: HEMATOCRIT 31.8 % (32.4-45.2); HEMOGLOBIN 10.9 GM/dL (10.7-15.3); MCH 32.9 pg (25.7-33.7); MCHC 34.3 g/dl (32.0-36.0); MEAN PLT VOLUME 9.4 fl (7.5-11.1); PLATELET COUNT 209 10^3/uL (134-434); RBC 3.31 M/mm3 (3.60-5.2); TOT PROT 6.6 g/dl (6.4-8.2); WHITE BLOOD COUNT 2.4 K/mm3 (4.0-10.0)
[2024-05-09] MEDS: METHOCARBAMOL 500 MG TABLET PO PRN (20:16)
[2024-05-09] MEDS: traZODone HCL 100 MG TABLET (FP) PO PRN (22:08)
[2024-05-10] MEDS: chlordiazePOXIDE HCL 10 MG CAPSULE PO SCH (10:08)
[2024-05-10] MEDS ORDERED: hydrOXYzine PAMOATE 50 MG CAPSULE (FP) PO PRN (14:11)
[2024-05-11] MEDS ORDERED: chlordiazePOXIDE HCL 10 MG CAPSULE PO PRN
[2024-05-11] MEDS: chlordiazePOXIDE HCL 10 MG CAPSULE PO ONE (05:58)
[2024-05-11 09:28] VITALS: BP 117/74; PULSE 69; RESP 18; TEMP 97.3
== END 2024-05-11 10:49 | disposition home or self-care (01) | DRG 775 ==
LOC: YASAS 01:33 → Y6N 13:58
PROVIDERS: ADMIT Allergy & Immunology; ATTEND Allergy & Immunology
PROC: HZ2ZZZZ Detoxification Services for Substance Abuse Treatment (ICD-10-PCS; principal; 2024-05-08)
DX: F10.230 Alcohol dependence with withdrawal, uncomplicated (principal); F10.282 Alcohol dependence with alcohol-induced sleep disorder; F10.24 Alcohol dependence with alcohol-induced mood disorder; F90.9 Attention-deficit hyperactivity disorder, unspecified type; E78.2 Mixed hyperlipidemia; F43.10 Post-traumatic stress disorder, unspecified; H52.10 Myopia, unspecified eye; I10 Essential (primary) hypertension; Z62.810 Personal history of physical and sexual abuse in childhood; Z63.8 Other specified problems related to primary support group; Z87.19 Personal history of other diseases of the digestive system; Z87.891 Personal history of nicotine dependence
CPT/HCPCS: 36415; 70450-TC; 80053; 80307; 85027; 86780; 99281-25